=== PATIENT | female | born 1960 | race Caucasian/White ===

== ENCOUNTER → 2016-06-23 | Outpatient (REF) | payer MEDICARE, MEDICAID ==
[~2016-06-23] MED LIST: ABIL10TA; ABIL5TAB; BUPR100T12; BUPR15TA; CARI350T; DEPLIN; KLON0.5T; KLON1TAB; LIDO5DIS; OXYC10TA56; REST15CA; SING10TA31; VENTAER
[2016-06-23 12:41] LABS: ALBUMIN 3.7 GM/DL (3.2-5.2); ALBUMIN/GLOBULIN RATIO 1.09 (1.00-1.93); ALKALINE PHOSPHATASE 109 U/L (45-117); ALT/SGPT 49 U/L (12-78); ANION GAP 6 MEQ/L (8-16); AST/SGOT 22 U/L (15-37); BILIRUBIN,TOTAL 0.3 MG/DL (0.2-1.0); BLOOD UREA NITROGEN 42 MG/DL (7-18); CALCIUM LEVEL 9.5 MG/DL (8.5-10.1); CARBON DIOXIDE LEVEL 28 MEQ/L (21-32); CHLORIDE LEVEL 106 MEQ/L (98-107); CHOLESTEROL LEVEL 156 MG/DL (<200); CREATININE FOR GFR 1.02 MG/DL (0.55-1.02); GLOMERULAR FILTRATION RATE > 60.0 (>51); GLUCOSE, FASTING 103 MG/DL (70-105); SODIUM LEVEL 140 MEQ/L (136-145); TOTAL PROTEIN 7.1 GM/DL (6.4-8.2); TRIGLYCERIDES LEVEL 123 MG/DL (<150)
[2016-06-23 12:43] LABS: BASO % 0.6 % (0.0-1.0); EOS # 0.2 K/mm3 (0.0-0.50); EOS % 4.2 % (0.0-3.0); LYMPH # 1.6 K/mm3 (1.5-4.5); LYMPH % 31.1 % (24.0-44.0); MEAN CORPUSCULAR HEMOGLOBIN 29.4 pg (27.0-33.0); MEAN CORPUSCULAR HGB CONC 31.1 g/dl (32.0-36.5); MEAN CORPUSCULAR VOLUME 94.4 fl (80.0-96.0); MONO # 0.3 K/mm3 (0.0-0.8); MONO % 5.8 % (0.0-5.0); NEUTROPHILS # 2.9 K/mm3 (1.8-7.7); NEUTROPHILS % 55.8 % (36.0-66.0); RED CELL DISTRIBUTION WIDTH 13.3 % (11.5-14.5); WHITE BLOOD COUNT 5.1 K/mm3 (4.0-10.0)
[2016-06-23 12:44] LABS: POTASSIUM SERUM 5.2 MEQ/L (3.5-5.1)
== END | disposition home or self-care (01) ==
LOC: M LABDRAW1 11:26
PROVIDERS: ATTEND Physician Assistant Medical
DX: E11.9 Type 2 diabetes mellitus without complications (principal)

== ENCOUNTER 2016-08-01 20:33 | Emergency (ER) | payer MEDICARE, MEDICAID ==
[~2016-08-01] VITALS: Ht 160 cm; Wt 124.3 kg
[2016-08-01] MEDS ORDERED: METF500T PO (21:04)
[2016-08-01] MEDS ORDERED: HYDR-3348 PO (21:04)
[2016-08-01] MEDS ORDERED: DULO30CA PO (21:04)
[2016-08-01] MEDS ORDERED: SOMA350T PO (21:04)
[2016-08-01] MEDS ORDERED: ATOR1TAB19 PO (21:04)
[2016-08-01] MEDS ORDERED: HYDR25TAB PO (21:04)
[2016-08-01] MEDS ORDERED: LISI30TA4 PO (21:04)
[2016-08-01 21:54] LABS: CALCIUM LEVEL 8.8 MG/DL (8.5-10.1); CREATININE FOR GFR 1.41 MG/DL (0.55-1.02); GLOMERULAR FILTRATION RATE 41.4 (>51)
[2016-08-01 21:55] LABS: POTASSIUM SERUM 5.2 MEQ/L (3.5-5.1)
[2016-08-01] MEDS ORDERED: methylPREDNISolone INJ 125 MG/2 ML VIAL (J2930) As Ordered ONE (22:29)
[2016-08-01] MEDS ORDERED: methylPREDNISolone INJ 40 MG/1 ML VIAL (J2920) IV ONE (22:30)
[2016-08-01] MEDS ORDERED: IPRATROPIUM 0.5MG/ALBUTEROL 2.5MG INH SOL UD 3ML (DUONEB)(J7620) NEB ONE (22:30)
[2016-08-01] MEDS ORDERED: ISOVUE-370 76% 100ML VIAL (Q9967) As Ordered ONE (22:58)
[2016-08-01 23:03] LABS: BASO % 0.6 % (0.0-1.0); EOS # 0.1 K/mm3 (0.0-0.50); EOS % 2.7 % (0.0-3.0); LARGE UNSTAINED CELL # 0.3 K/mm3 (0.0-0.4); LARGE UNSTAINED CELL % 6.5 % (0.0-4.0); LYMPH # 2.5 K/mm3 (1.5-4.5); LYMPH % 45.5 % (24.0-44.0); MEAN CORPUSCULAR HEMOGLOBIN 30.5 pg (27.0-33.0); MEAN CORPUSCULAR HGB CONC 33.5 g/dl (32.0-36.5); MONO # 0.4 K/mm3 (0.0-0.8); MONO % 8.6 % (0.0-5.0); NEUTROPHILS # 1.7 K/mm3 (1.8-7.7); NEUTROPHILS % 36.1 % (36.0-66.0); PLATELET COUNT, AUTOMATED 237 k/mm3 (150-450); RED CELL DISTRIBUTION WIDTH 13.1 % (11.5-14.5); WHITE BLOOD COUNT 4.8 K/mm3 (4.0-10.0)
--- NOTE | 2016-08-01 23:30 | REPUSA ---
History: pain. Comparison: No prior CTA of the chest available Technique: A CT-pulmonary angiogram was performed. A dose of intravenous contrast was administered. A xial images were displayed, as were sagittal and coronal reconstructions. A 3-D model was also render ed. Exam DLP: Findings: No CT evidence of pulmonary embolism is identified. There is no evidence of thoracic aortic aneurysm or dissection. No air space consolidation is identified in the lungs. There is no evidence of pulmonary edema. No pa thologically enlarged hilar or mediastinal lymph nodes are identified. No significant pleural or sang cardial fluid collection is seen. There is no evidence of pneumothorax. Mild degenerative changes are noted in the spine. The included portion of the upper abdomen does not show significant abnormality. Impression: No evidence of pulmonary embolism is identified.
[2016-08-01 23:50] VITALS: BP 105/54
[2016-08-01] MEDS ORDERED: ALBU83IN INH (23:57)
[2016-08-02] MEDS ORDERED: BICILLIN L-A 2,400,000 UNIT/4 ML SYRINGE (J0561-24)PENICILLIN G BENZATINE IM ONE
--- NOTE | 2016-08-02 01:47 | REP ---
Clinical: Dyspnea/cough. Comparison: 09/10/2014 . Findings: The mediastinum and cardiac silhouette are stable and within normal limits for portable technique. The lung juares are clear without acute consolidation, effusion, or pneumothorax. Skeletal structures are intact. Impression: No obvious acute consolidation. Signed by Renzo Maddox MD 08/02/2016 01:39 A
--- NOTE | 2016-08-02 09:59 | ECGEPIP ---
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
== END 2016-08-02 00:28 | disposition home or self-care (01) ==
LOC: M ED 22:36
DX: R06.02 Shortness of breath (principal); J02.0 Streptococcal pharyngitis; J44.9 Chronic obstructive pulmonary disease, unspecified; I10 Essential (primary) hypertension; E11.9 Type 2 diabetes mellitus without complications; F32.9 Major depressive disorder, single episode, unspecified; M54.9 Dorsalgia, unspecified; M25.569 Pain in unspecified knee; Z87.891 Personal history of nicotine dependence; Z88.8 Allergy status to other drugs, medicaments and biological substances; Z88.1 Allergy status to other antibiotic agents; Z91.040 Latex allergy status; Z79.899 Other long term (current) drug therapy; Z79.84 Long term (current) use of oral hypoglycemic drugs
CPT/HCPCS: 71010; 71275; 80048; 83605; 83880; 85025; 87804; 87880; 93005; 93041; 94640; 94760; 96372; 96374; 99285; G0463; J0561; J2930; Q9967

== ENCOUNTER → 2017-02-15 | Outpatient (CLI) | payer MEDICARE, MEDICAID ==
[~2017-02-15] MED LIST changes: +ALBU83IN INH; +ATOR1TAB19 PO; +DULO30CA PO; +HYDR-3348 PO; +HYDR25TAB PO; +LISI30TA4 PO; +METF500T13 PO; +SOMA350T PO
[2017-02-15 16:54] LABS: ALBUMIN 3.5 GM/DL (3.2-5.2); BILIRUBIN,TOTAL 0.6 MG/DL (0.2-1.0); CALCIUM LEVEL 9.1 MG/DL (8.5-10.1); CREATININE FOR GFR 1.07 MG/DL (0.55-1.02); GLOMERULAR FILTRATION RATE 56.7 (>51); POTASSIUM SERUM 4.8 MEQ/L (3.5-5.1)
[2017-02-15 18:11] LABS: BASO # 0.1 10^3/uL (0.0-0.2); BASO % 0.8 % (0.0-1.0); EOS # 0.3 10^3/uL (0.0-0.50); EOS % 4.5 % (0.0-3.0); IMMATURE GRANULOCYTE % 0.3 % (0-0); LYMPH # 1.9 10^3/uL (1.5-4.5); LYMPH % 30.9 % (24.0-44.0); MEAN CORPUSCULAR HEMOGLOBIN 29.2 pg (27.0-33.0); MEAN CORPUSCULAR HGB CONC 30.9 g/dl (32.0-36.5); MEAN CORPUSCULAR VOLUME 94.6 fl (80.0-96.0); MONO # 0.5 10^3/uL (0.0-0.8); MONO % 7.4 % (0.0-5.0); NEUTROPHILS # 3.5 10^3/uL (1.8-7.7); NEUTROPHILS % 56.1 % (36.0-66.0); RED CELL DISTRIBUTION WIDTH 13.7 % (11.5-14.5); WHITE BLOOD COUNT 6.2 10^3/uL (4.0-10.0)
== END ==
LOC: M LRY 10:55
PROVIDERS: ATTEND Physician Assistant Medical
DX: E11.9 Type 2 diabetes mellitus without complications (principal)

== ENCOUNTER → 2017-05-20 | Outpatient (CLI) | payer MEDICARE, MEDICAID ==
[2017-05-20 19:14] LABS: BASO # 0.1 10^3/uL (0.0-0.2); BASO % 0.9 % (0.0-1.0); EOS # 0.4 10^3/uL (0.0-0.50); EOS % 6.6 % (0.0-3.0); IMMATURE GRANULOCYTE % 0.4 % (0-0); LYMPH # 1.5 10^3/uL (1.5-4.5); LYMPH % 28.1 % (24.0-44.0); MEAN CORPUSCULAR HEMOGLOBIN 29.3 pg (27.0-33.0); MEAN CORPUSCULAR HGB CONC 31.3 g/dl (32.0-36.5); MEAN CORPUSCULAR VOLUME 93.7 fl (80.0-96.0); MONO # 0.6 10^3/uL (0.0-0.8); MONO % 10.3 % (0.0-5.0); NEUTROPHILS # 2.9 10^3/uL (1.8-7.7); NEUTROPHILS % 53.7 % (36.0-66.0); PLATELET COUNT, AUTOMATED 279 10^3/uL (150-450); RED CELL DISTRIBUTION WIDTH 13.5 % (11.5-14.5); WHITE BLOOD COUNT 5.5 10^3/uL (4.0-10.0)
[2017-05-20 19:28] LABS: ESTIMATED AVERAGE GLUCOSE 137 MG/DL (60-110)
[2017-05-20 19:31] LABS: ALBUMIN 3.7 GM/DL (3.2-5.2); ALBUMIN/GLOBULIN RATIO 1.09 (1.00-1.93); ALKALINE PHOSPHATASE 103 U/L (45-117); ALT/SGPT 45 U/L (12-78); ANION GAP 9 MEQ/L (8-16); AST/SGOT 23 U/L (7-37); BILIRUBIN,TOTAL 0.5 MG/DL (0.2-1.0); BLOOD UREA NITROGEN 28 MG/DL (7-18); CALCIUM LEVEL 9.2 MG/DL (8.5-10.1); CARBON DIOXIDE LEVEL 29 MEQ/L (21-32); CHLORIDE LEVEL 103 MEQ/L (98-107); CHOLESTEROL LEVEL 229 MG/DL (<200); CREATININE FOR GFR 0.97 MG/DL (0.55-1.02); GLOMERULAR FILTRATION RATE > 60.0 (>51); GLUCOSE, FASTING 127 MG/DL (70-105); POTASSIUM SERUM 4.2 MEQ/L (3.5-5.1); SODIUM LEVEL 141 MEQ/L (136-145); T UPTAKE 32 % (30-39); THYROXINE (T4) 8.5 UG/DL (4.5-12.0); TOTAL PROTEIN 7.1 GM/DL (6.4-8.2); TRIGLYCERIDES LEVEL 300 MG/DL (<150)
[2017-05-20 20:08] LABS: ERYTHROCYTE SEDIMENTATION RATE 13 mm/hr (0-30)
[2017-05-23 11:10] LABS: ALBUMIN 4.04 GM/DL (3.29-5.55); ALBUMIN % 56.9 % (55.8-66.1); GAMMA GLOBULIN % 14.5 % (11.1-18.8)
[2017-05-25 00:06] LABS: Lyme Disease IgG/IgM Antibodie <0.91 ISR (0.00-0.90); Lyme Disease IgM Ab Quantitati <0.80 index (0.00-0.79)
== END ==
LOC: M WUC 08:06
DX: E11.9 Type 2 diabetes mellitus without complications (principal); M54.5 Low back pain
CPT/HCPCS: 82550

== ENCOUNTER → 2017-09-18 | Outpatient (CLI) | payer MEDICARE, MEDICAID ==
[2017-09-18 09:43] LABS: BASO % 0.6 % (0.0-1.0); EOS # 0.4 10^3/uL (0.0-0.50); EOS % 5.9 % (0.0-3.0); HEMATOCRIT 45.2 % (36.0-47.0); HEMOGLOBIN 14.3 g/dl (12.0-15.5); IMMATURE GRANULOCYTE % 0.6 % (0-3.0); LYMPH # 1.7 10^3/uL (1.5-4.5); LYMPH % 26.7 % (24.0-44.0); MEAN CORPUSCULAR HEMOGLOBIN 29.7 pg (27.0-33.0); MEAN CORPUSCULAR HGB CONC 31.6 g/dl (32.0-36.5); MONO # 0.6 10^3/uL (0.0-0.8); MONO % 9.4 % (0.0-5.0); NEUTROPHILS # 3.7 10^3/uL (1.8-7.7); NEUTROPHILS % 56.8 % (36.0-66.0); PLATELET COUNT, AUTOMATED 267 10^3/uL (150-450); RED BLOOD COUNT 4.81 10^6/uL (4.00-5.40); RED CELL DISTRIBUTION WIDTH 13.7 % (11.5-14.5); WHITE BLOOD COUNT 6.5 10^3/uL (4.0-10.0)
[2017-09-18 09:44] LABS: APPEARANCE, URINE HAZY (CLEAR); BACTERIA, URINE AUTO NEGATIVE (NEGATIVE); BILIRUBIN, URINE AUTO NEGATIVE (NEGATIVE); BLOOD, URINE BLOOD NEGATIVE (NEGATIVE); COLOR, URINE YELLOW (YELLOW); GLUCOSE, URINE (UA) AUTO NEGATIVE (NEGATIVE); KETONE, URINE AUTO NEGATIVE (NEGATIVE); LEUKOCYTE ESTERASE, URINE AUTO NEGATIVE (NEGATIVE); MUCUS, URINE SMALL (NEGATIVE); NITRITE, URINE AUTO NEGATIVE (NEGATIVE); PROTEIN, URINE AUTO NEGATIVE (NEGATIVE); RBC, URINE AUTO 1 /HPF (0-3); SPECIFIC GRAVITY URINE AUTO 1.023 (1.002-1.035); SQUAMOUS EPITHELIAL CELL UR AU 1 /HPF (0-6); UROBILINOGEN, URINE AUTO 0.2 mg/dL (0.0-2.0); WBC, URINE AUTO 2 /HPF (0-3)
[2017-09-18 09:59] LABS: ESTIMATED AVERAGE GLUCOSE 151 MG/DL (60-110); HEMOGLOBIN A1c 6.9 %
[2017-09-18 10:28] LABS: ALBUMIN 3.7 GM/DL (3.2-5.2); ALBUMIN/GLOBULIN RATIO 0.95 (1.00-1.93); ALKALINE PHOSPHATASE 120 U/L (45-117); ALT/SGPT 45 U/L (12-78); ANION GAP 5 MEQ/L (8-16); AST/SGOT 19 U/L (7-37); BILIRUBIN,TOTAL 0.4 MG/DL (0.2-1.0); BLOOD UREA NITROGEN 31 MG/DL (7-18); CARBON DIOXIDE LEVEL 29 MEQ/L (21-32); CHLORIDE LEVEL 107 MEQ/L (98-107); CHOLESTEROL LEVEL 217 MG/DL (<200); CHOLESTEROL RISK RATIO 3.238 (<5); CREATININE FOR GFR 1.02 MG/DL (0.55-1.30); GLOMERULAR FILTRATION RATE 59.7 (>51); GLUCOSE, FASTING 132 MG/DL (70-100); HDL CHOLESTEROL 67 MG/DL (>40); LDL CHOLESTEROL 112.8 MG/DL (<100); MALB URINE SIEMENS 10.2 MG/L; NON-HDL-C 150 MG/DL; POTASSIUM SERUM 4.4 MEQ/L (3.5-5.1); SODIUM LEVEL 141 MEQ/L (136-145); TOTAL PROTEIN 7.6 GM/DL (6.4-8.2); TRIGLYCERIDES LEVEL 186 MG/DL (<150)
[2017-09-18 11:02] LABS: TOTAL 25(OH) VITAMIN D 12.9 NG/ML (30.0-100.0)
== END ==
LOC: M LAB 08:50
DX: F41.9 Anxiety disorder, unspecified (principal); M25.569 Pain in unspecified knee; I10 Essential (primary) hypertension; E11.9 Type 2 diabetes mellitus without complications; E78.5 Hyperlipidemia, unspecified; R31.21 Asymptomatic microscopic hematuria
CPT/HCPCS: 84443

== ENCOUNTER → 2017-11-05 | Outpatient (CLI) | payer MEDICARE, MEDICAID | LOC: M SLEEP 20:00 | DX: G47.33 Obstructive sleep apnea (adult) (pediatric) (principal) | CPT/HCPCS: 95811 ==

== ENCOUNTER → 2017-11-16 | Outpatient (REF) | payer MEDICARE, MEDICAID ==
[2017-11-16 18:37] LABS: APPEARANCE, URINE CLEAR (CLEAR); BACTERIA, URINE AUTO 1+ (NEGATIVE); BILIRUBIN, URINE AUTO NEGATIVE (NEGATIVE); BLOOD, URINE BLOOD NEGATIVE (NEGATIVE); COLOR, URINE YELLOW (YELLOW); GLUCOSE, URINE (UA) AUTO NEGATIVE (NEGATIVE); KETONE, URINE AUTO NEGATIVE (NEGATIVE); LEUKOCYTE ESTERASE, URINE AUTO NEGATIVE (NEGATIVE); MUCUS, URINE SMALL (NEGATIVE); NITRITE, URINE AUTO NEGATIVE (NEGATIVE); PROTEIN, URINE AUTO NEGATIVE (NEGATIVE); RBC, URINE AUTO 1 /HPF (0-3); SPECIFIC GRAVITY URINE AUTO 1.011 (1.002-1.035); SQUAMOUS EPITHELIAL CELL UR AU 3 /HPF (0-6); UROBILINOGEN, URINE AUTO 0.2 mg/dL (0.0-2.0); WBC, URINE AUTO 1 /HPF (0-3)
== END ==
LOC: M LAB REF 16:37
DX: R39.15 Urgency of urination (principal)
CPT/HCPCS: 81001

== ENCOUNTER → 2018-02-19 | Outpatient (CLI) | payer MEDICARE, MEDICAID | LOC: M WUC 17:12 | DX: R06.00 Dyspnea, unspecified (principal) | CPT/HCPCS: 71046 ==

== ENCOUNTER → 2018-05-09 | Outpatient (CLI) | payer MEDICARE, MEDICAID ==
[~2018-05-09] MED LIST changes: +CELE40TA PO; +DYAZ37.5 PO; +E-Z-GAS II EFFERVESCENT PACKET (SODIUM BICARB./CITRIC ACID/SIMETHICONE) As Ordered ONE; +E-Z-HD 98% w/w 340GM SUSP BTL As Ordered ONE; +E-Z-PAQUE 96% w/w SUSP 176GM BTL As Ordered ONE; +LISI-672 PO; +LISI10TA4 PO; -LISI30TA4 PO; +PROAAER10 INH; +PYRI1TAB5 PO; +SING10TA32 PO; +ZYRTTAB8 PO
--- NOTE | 2018-05-09 20:32 | REP ---
Esophagram The procedure was performed under the direct supervision of Dr. Allen. The images were reviewed with Dr. Allen. 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 There is no change compared to a previous chest x-ray performed on 02/19/2018. Liquid barium and gas producing granules were given in the erect position as well as liquid barium in the prone oblique positions in order to perform a double contrast esophagram examination. The oral and pharyngeal stages of deglutition are unremarkable. Esophageal transport is prompt and efficient and there is no esophagitis, stricture, mucosal ring or hiatal hernia. Gastroesophageal reflux is not demonstrated on this examination. Impression: unremarkable double contrast esophagram examination. 0.7 minutes of fluoro time was utilized for this procedure. Reviewed by PARKER Hook 05/09/2018 04:29 P Electronically Signed by Winston Allen MD 05/09/2018 08:23 P
== END ==
LOC: M RAD 09:55
PROVIDERS: ATTEND Physician Assistant Medical
DX: R13.10 Dysphagia, unspecified (principal)

== ENCOUNTER 2018-05-28 10:06 | Day surgery (SDC) | payer MEDICARE, MEDICAID ==
[~2018-05-28] VITALS: Ht 160 cm; Wt 137.9 kg
[~2018-05-28 10:06] MED LIST changes: -E-Z-GAS II EFFERVESCENT PACKET (SODIUM BICARB./CITRIC ACID/SIMETHICONE) As Ordered ONE; -E-Z-HD 98% w/w 340GM SUSP BTL As Ordered ONE; -E-Z-PAQUE 96% w/w SUSP 176GM BTL As Ordered ONE; +LIDOCAINE 2% INJ 100 MG/5 ML SDV (FOR ANES.) As Ordered ONE; +PROPOFOL 200 MG/20 ML VIAL As Ordered ONE; -ZYRTTAB8 PO
[2018-05-28] MEDS ORDERED: NS 1,000 ML IV ONE (10:30)
[2018-05-28] MEDS ORDERED: ZYRTTAB8 PO (10:50)
[2018-05-28] MEDS ORDERED: PROPOFOL 200 MG/20 ML VIAL As Ordered ONE (11:17)
--- NOTE | 2018-05-28 11:19 | ROOR ---
Patient Name: Ning Hermosillo Procedure Date: 05/28/2018 11:04 AM Date of : 1960 Age: 57 Room: [facility] Gender: Female Note Status: Finalized Procedure: Colonoscopy Indications: High risk colon cancer surveillance: Personal history of colonic polyps, Last colonoscopy: June 2014 Providers: Collin PADILLA MD Referring MD: NEGRO FRASER MD Requesting Provider: Medicines: Monitored Anesthesia Care Complications: No immediate complications. Procedure: Pre-Anesthesia Assessment: - The heart rate, respiratory rate, oxygen saturations, blood pressure, adequacy of pulmonary ventilation, and response to care were monitored throughout the procedure. The Colonoscope was introduced through the anus and advanced to the terminal ileum, with identification of the appendiceal orifice and IC valve. The colonoscopy was performed without difficulty. The patient tolerated the procedure well. The quality of the bowel preparation was good. Findings: The perianal and digital rectal examinations were normal. A 4 mm polyp was found in the sigmoid colon. The polyp was sessile. The polyp was removed with a cold snare. Resection and retrieval were complete. Mild sigmoid diverticulosis and small internal hemorrhoids. Retroflexion in the right colon was performed. Impression: - One 4 mm polyp in the sigmoid colon, removed with a cold snare. Resected and retrieved. - Mild sigmoid diverticulosis and small internal hemorrhoids. - The exam was otherwise normal to the cecum. Recommendation: - Repeat colonoscopy in 5 years for surveillance and for surveillance based on personal history of previous adenomatous polyps. Collin Padilla MD Collin PADILLA MD 05/28/2018 11:19:19 AM This report has been signed electronically. Number of Addenda: 0 Note Initiated On: 05/28/2018 11:04 AM Estimated Blood Loss: Estimated blood loss: none.
[2018-05-28 11:50] VITALS: BP 147/100
== END 2018-05-28 11:51 | disposition home or self-care (01) ==
LOC: M OPP 10:06
PROVIDERS: ATTEND Internal Medicine Gastroenterology
DX: D12.5 Benign neoplasm of sigmoid colon (principal); K57.30 Diverticulosis of large intestine without perforation or abscess without bleeding; K64.8 Other hemorrhoids; Z86.010 Personal history of colon polyps

== ENCOUNTER 2018-06-19 10:47 | Emergency (ER) | payer MEDICARE, MEDICAID ==
[~2018-06-19] VITALS: Ht 160 cm; Wt 140.0 kg
[~2018-06-19 10:47] MED LIST changes: -LIDOCAINE 2% INJ 100 MG/5 ML SDV (FOR ANES.) As Ordered ONE; -PROPOFOL 200 MG/20 ML VIAL As Ordered ONE; +ZYRTTAB8 PO
[2018-06-19] MEDS ORDERED: CETI10CH PO (11:11)
[2018-06-19] MEDS ORDERED: MAG400TA PO (11:11)
[2018-06-19] MEDS ORDERED: TRAM50TA2 PO (11:11)
[2018-06-19] MEDS ORDERED: SYMB16INH INH (11:11)
[2018-06-19 11:24] LABS: BASO % 0.3 % (0.0-1.0); EOS # 0.3 10^3/uL (0.0-0.50); EOS % 5.2 % (0.0-3.0); HEMATOCRIT 47.8 % (36.0-47.0); LYMPH # 1.6 10^3/uL (1.5-4.5); LYMPH % 25.8 % (24.0-44.0); MEAN CORPUSCULAR HEMOGLOBIN 30.2 pg (27.0-33.0); MEAN CORPUSCULAR HGB CONC 31.4 g/dl (32.0-36.5); MEAN CORPUSCULAR VOLUME 96.4 fl (80.0-96.0); MONO # 0.6 10^3/uL (0.0-0.8); MONO % 9.6 % (0.0-5.0); NEUTROPHILS # 3.7 10^3/uL (1.8-7.7); NEUTROPHILS % 58.6 % (36.0-66.0); PLATELET COUNT, AUTOMATED 236 10^3/uL (150-450); RED BLOOD COUNT 4.96 10^6/uL (4.00-5.40); WHITE BLOOD COUNT 6.4 10^3/uL (4.0-10.0)
[2018-06-19 11:34] LABS: ABG BASE EXCESS -1.8 (-2.0-2.0); ABG HCO3 24.5 MEQ/L (22.0-26.0); ABG O2 SATURATION 97.3 % (95.0-99.0); ABG PARTIAL PRESSURE CO2 47.1 mmHg (35.0-45.0); ABG PARTIAL PRESSURE O2 97.8 mmHg (75.0-100.0); ABG TOTAL CO2 25.9 MEQ/L (22.0-29.0); ABG pH (ARTERIAL) 7.334 UNITS (7.350-7.450)
[2018-06-19] MEDS ORDERED: methylPREDNISolone INJ 125 MG/2 ML VIAL (J2930) IV ONE (11:45)
[2018-06-19] MEDS ORDERED: IPRATROPIUM 0.5MG/ALBUTEROL 2.5MG INH SOL UD 3ML (DUONEB)(J7620) NEB ONE (11:45)
[2018-06-19 12:01] LABS: ALBUMIN 3.2 GM/DL (3.2-5.2); ALT/SGPT 55 U/L (12-78); BILIRUBIN,DIRECT 0.1 MG/DL (0.0-0.2); BILIRUBIN,TOTAL 0.4 MG/DL (0.2-1.0); BLOOD UREA NITROGEN 25 MG/DL (7-18); CALCIUM LEVEL 8.9 MG/DL (8.5-10.1); CARBON DIOXIDE LEVEL 29 MEQ/L (21-32); CHLORIDE LEVEL 102 MEQ/L (98-107); CPK CREATINE PHOSPHOKINASE 80 U/L (26-192); CREATININE FOR GFR 0.98 MG/DL (0.55-1.30); GLOMERULAR FILTRATION RATE > 60.0 (>51); GLUCOSE, FASTING 120 MG/DL (70-100); MB/CK RELATIVE INDEX 1.62 (< OR =4); NT-PRO BNP 37 PG/ML (<125); POTASSIUM SERUM 4.2 MEQ/L (3.5-5.1); SODIUM LEVEL 138 MEQ/L (136-145); TROPONIN I 0.08 NG/ML (< 0.10)
[2018-06-19] MEDS ORDERED: ISOVUE-370 76% 100ML VIAL (Q9967) As Ordered ONE (12:39)
--- NOTE | 2018-06-19 13:39 | REP ---
Clinical: Hypoxia. Technique: Axial contrast enhanced images from the thoracic inlet to the upper abdomen with coronal and sagittal re-formations using PE protocol. 100 ml Isovue 370 intravenous contrast material administered without complication. Findings: Satisfactory enhancement of the pulmonary vasculature is achieved and no filling defects are identified to suggest pulmonary embolus. The lung juares demonstrate mild bilateral lower lobe atelectasis and small focus of consolidation at the lingula. No effusion. No pneumothorax. Tracheobronchial tree is patent. No significant adenopathy. Mediastinum demonstrates normal thoracic aorta and heart/pericardium. Musculoskeletal structures without focal osseous abnormality. Limited upper abdomen demonstrates normal bilateral adrenal glands and findings to suggest hepatosteatosis. Impression: 1. No pulmonary embolus. 2. Mild bibasilar and lingular atelectasis. 3. Hepatosteatosis suggested. Electronically Signed by Renzo Maddox MD 06/19/2018 01:31 P
[2018-06-19 13:53] VITALS: O2SAT 86
[2018-06-19] MEDS ORDERED: PRED20TA PO (14:01)
[2018-06-19 14:08] VITALS: BP 150/75
--- NOTE | 2018-06-19 21:20 | ECGEPIP ---
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
== END 2018-06-19 14:22 | disposition left against medical advice (07) ==
LOC: M ED 10:47 → EDBD 10:47 → M ED 14:22
DX: J44.9 Chronic obstructive pulmonary disease, unspecified (principal); N18.9 Chronic kidney disease, unspecified; I12.9 Hypertensive chronic kidney disease with stage 1 through stage 4 chronic kidney disease, or unspecified chronic kidney disease; E11.22 Type 2 diabetes mellitus with diabetic chronic kidney disease; M19.90 Unspecified osteoarthritis, unspecified site
CPT/HCPCS: 36600; 71275; 80048; 80076; 82550; 82553; 82803; 83880; 84443; 84484; 85025; 93005; 93041; 94640; 94760; 96374; 99285; J2930; Q9967

== ENCOUNTER → 2018-08-03 | Outpatient (REF) | payer MEDICARE, MEDICAID ==
[~2018-08-03] MED LIST changes: +CETI10CH PO; +MAG400TA PO; +PRED20TA PO; +SYMB16INH INH; +TRAM50TA2 PO
[2018-08-03 13:41] LABS: APPEARANCE, URINE CLEAR (CLEAR); BACTERIA, URINE AUTO 1+ (NEGATIVE); BILIRUBIN, URINE AUTO NEGATIVE (NEGATIVE); BLOOD, URINE BLOOD NEGATIVE (NEGATIVE); COLOR, URINE YELLOW (YELLOW); GLUCOSE, URINE (UA) AUTO NEGATIVE (NEGATIVE); KETONE, URINE AUTO NEGATIVE (NEGATIVE); LEUKOCYTE ESTERASE, URINE AUTO NEGATIVE (NEGATIVE); NITRITE, URINE AUTO NEGATIVE (NEGATIVE); PROTEIN, URINE AUTO NEGATIVE (NEGATIVE); RBC, URINE AUTO 0 /HPF (0-3); SPECIFIC GRAVITY URINE AUTO 1.012 (1.002-1.035); SQUAMOUS EPITHELIAL CELL UR AU 0 /HPF (0-6); UROBILINOGEN, URINE AUTO 0.2 mg/dL (0.0-2.0); WBC, URINE AUTO 0 /HPF (0-3)
[2018-08-03 13:56] LABS: HEMOGLOBIN A1c 7.4 %
[2018-08-03 14:03] LABS: ALBUMIN 3.5 GM/DL (3.2-5.2); BILIRUBIN,TOTAL 0.8 MG/DL (0.2-1.0); CALCIUM LEVEL 8.9 MG/DL (8.5-10.1); CHOLESTEROL RISK RATIO 2.73 (<5); CREATININE FOR GFR 1.06 MG/DL (0.55-1.30); GLOMERULAR FILTRATION RATE 57.1 (>51); POTASSIUM SERUM 4.2 MEQ/L (3.5-5.1); THYROID STIMULATING HORMONE 2.39 uIU/ML (0.358-3.740); TOTAL PROTEIN 6.9 GM/DL (6.4-8.2)
== END ==
LOC: M LAB REF 11:52
PROVIDERS: ATTEND Family Medicine Addiction Medicine
DX: E11.9 Type 2 diabetes mellitus without complications (principal)

== ENCOUNTER → 2018-08-03 | Outpatient (CLI) | payer MEDICARE, MEDICAID ==
[2018-08-03 17:15] LABS: BASO % 0.6 % (0.0-1.0); EOS # 0.2 10^3/uL (0.0-0.50); EOS % 2.4 % (0.0-3.0); HEMATOCRIT 46.3 % (36.0-47.0); HEMOGLOBIN 14.5 g/dl (12.0-15.5); LYMPH # 1.8 10^3/uL (1.5-4.5); LYMPH % 25.3 % (24.0-44.0); MEAN CORPUSCULAR HEMOGLOBIN 29.8 pg (27.0-33.0); MEAN CORPUSCULAR HGB CONC 31.3 g/dl (32.0-36.5); MEAN CORPUSCULAR VOLUME 95.3 fl (80.0-96.0); MONO # 0.6 10^3/uL (0.0-0.8); MONO % 8.1 % (0.0-5.0); NEUTROPHILS # 4.6 10^3/uL (1.8-7.7); NEUTROPHILS % 63.3 % (36.0-66.0); PLATELET COUNT, AUTOMATED 229 10^3/uL (150-450); RED BLOOD COUNT 4.86 10^6/uL (4.00-5.40); WHITE BLOOD COUNT 7.2 10^3/uL (4.0-10.0)
== END ==
LOC: M WUC 14:28
PROVIDERS: ATTEND Physician Assistant
DX: J45.998 Other asthma (principal); E11.9 Type 2 diabetes mellitus without complications

== ENCOUNTER → 2018-08-15 | Outpatient (REF) | payer MEDICARE, MEDICAID | LOC: M LAB REF 19:27 | PROVIDERS: ATTEND Family Medicine Addiction Medicine | DX: M25.562 Pain in left knee (principal) ==

== ENCOUNTER → 2018-08-21 | Outpatient (CLI) | payer MEDICARE, MEDICAID ==
[~2018-08-21] MED LIST changes: -DULO30CA PO; +DULO30CA9 PO
--- NOTE | 2018-08-21 10:47 | REP ---
MRI left knee without contrast: History: Left knee pain. Comparison left knee MRI study is from August 28, 2017. The prior study showed medial and lateral meniscal tears, chondromalacia, and suggestion of a bone infarct in the proximal tibia. Technique: Axial, coronal and sagittal imaging planes utilized. T1, proton density and T2-weighted scans were obtained in the usual fashion with and without fat saturation MRI findings: Cortical and medullary bone signal intensity are normal. There is a moderate sized Villarreal's cyst in the posteromedial popliteal soft tissues. This measures 5.2 cm in greatest diameter. There is a moderate joint effusion. Some prepatellar subcutaneous edema is seen. The joint effusion is a little more prominent than on the 2018 study. There is moderate degree of osteoarthritis affecting the medial and lateral compartments. There is severe chondromalacia in the medial compartment and moderate chondromalacia changes are seen laterally and in the patellofemoral compartment. These findings are quite similar to the study done a year ago. There are cellular marrow changes in the distal femur and proximal tibia. Some T2 hyperintensity is seen in the proximal tibia beneath the tibial spines. This is unchanged from the comparison study. There is medial bowing of the medial collateral ligament. The MCL appears intact. The lateral collateral ligament complex appears intact. Patellar and quadriceps tendons are unremarkable. The anterior posterior cruciate ligaments appear intact. There is some increased signal intensity diffusely in the posterior cruciate ligament. There is medial extrusion of the mid body of the medial meniscus associated with the osteoarthritis. This is more pronounced than on the prior study. There is evidence of degenerative tearing of the post horn of the medial and the anterior horn of the medial meniscus. Some increased signal intensity is seen in the anterior horn of the lateral meniscus. This is unchanged. There is no visible loose body. Impression: Moderate three compartment osteoarthritis most pronounced affecting the medial compartment. Severe chondromalacia changes. Degenerative tear pattern in the medial and lateral menisci unchanged. Villarreal's cyst and joint effusion. Electronically Signed by Winston Allen MD 08/21/2018 01:17 P
--- NOTE | 2018-08-21 10:48 | REP ---
MRI pelvis without contrast: History: Fracture of the lumbar spine and pelvis. Comparison pelvic MRI study is from June 25, 2018. This showed an avulsion fracture of the left pubis at the insertion of the adductor longus tendon. Findings were also seen suggestive of avascular necrosis of the femoral heads. Technique: Axial, coronal and sagittal imaging planes were utilized. T1 and T2-weighted scans were obtained with and without fat saturation. MRI findings: Again noted is an abnormal signal intensity pattern in the subcortical marrow of the femoral heads bilaterally consistent with mild avascular necrosis. No collapse or flattening. There is a small quantity of joint fluid present bilaterally. Abnormal signal intensity is again seen at the adductor insertion on the left pubic bone with evidence of some fluid accumulation here. This is the site where prior study showed a small evulsion injury. No ongoing bony erosive change is seen. No muscle or tendon retraction is appreciated. Cortical and medullary bone signal intensity are otherwise normal. There is sigmoid colon diverticulosis noted. No other significant finding. Impression: Persistent edematous and fluid signal intensity noted at the adductor attachment on the left side of the pubic symphysis consistent with subacute injury. No other acute abnormality. 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 Electronically Signed by Winston Allen MD 08/21/2018 01:17 P
== END ==
LOC: M RAD 08:20
PROVIDERS: ATTEND Family Medicine Addiction Medicine
DX: S32.9XXA Fracture of unspecified parts of lumbosacral spine and pelvis, initial encounter for closed fracture (principal); M25.562 Pain in left knee; X58.XXXA Exposure to other specified factors, initial encounter; Y93.89 Activity, other specified; Y92.9 Unspecified place or not applicable

== ENCOUNTER → 2018-09-27 | Outpatient (CLI) | payer MEDICARE, MEDICAID ==
--- NOTE | 2018-09-27 16:35 | REP ---
Hand series: Four views. History: Pain. Findings: Four views of the left hand demonstrate overall normal mineralization. There is an old ununited ulnar styloid fracture. There is mild osteoarthritis the first carpometacarpal articulation. Osteoarthritic spurring is seen at the IP joint of the thumb and to a lesser extent, the PIP joints of the index and long finger and the DIP joint of the index and ring finger. No erosive changes seen. Impression: Osteoarthritic changes. Electronically Signed by Winston Allen MD 09/27/2018 04:53 P
== END ==
LOC: M WUC 08:55
PROVIDERS: ATTEND Physician Assistant
DX: M19.042 Primary osteoarthritis, left hand (principal)

== ENCOUNTER → 2018-11-21 | Outpatient (CLI) | payer MEDICARE, MEDICAID ==
--- NOTE | 2018-11-21 14:29 | REPMRS ---
Patient History The patient states she has not had a clinical breast exam in over a year. Family history of breast cancer at age 50 or over in maternal aunt, breast cancer in maternal aunt. 3D TOMOSYNTHESIS WAS PERFORMED. The Francisco Cantor lifetime risk for breast cancer is 10.3%. Digital Mammo Screening Bilat: November 21, 2018 - Exam #: [id number] Bilateral CC and MLO view(s) were taken. Technologist: Mckenna Donaldson Technologist Prior study comparison: October 10, 2017, bilateral digital mammo screening bilat performed at [facility]. January 04, 2016, bilateral digital mammo screening bilat performed at [facility]. FINDINGS: There are scattered fibroglandular densities. There has been no change in the appearance of the mammogram from the prior studies. There is a mild amount of residual fibroglandular tissue which is fairly symmetric. There is no interval development of dominant mass, architectural distortion, or clustered microcalcification suggestive of malignancy. Assessment: BI-RADS/ACR category 1 mammogram. Negative Mammogram. Recommendation Routine screening mammogram in 1 year (for women over age 40). This mammogram was interpreted with the aid of an FDA-approved computer-aided dectection system. Electronically Signed By: Sandeep Barry MD 11/21/18 [id number]
== END ==
LOC: M RAD 12:54
PROVIDERS: ATTEND Family Medicine Addiction Medicine
DX: Z12.31 Encounter for screening mammogram for malignant neoplasm of breast (principal)

== ENCOUNTER → 2019-01-07 | Outpatient (REF) | payer MEDICARE, MEDICAID ==
[2019-01-07 13:43] LABS: ALBUMIN 3.2 GM/DL (3.2-5.2); ALT/SGPT 57 U/L (12-78); BILIRUBIN,TOTAL 0.3 MG/DL (0.2-1.0); BLOOD UREA NITROGEN 29 MG/DL (7-18); CALCIUM LEVEL 9.2 MG/DL (8.5-10.1); CARBON DIOXIDE LEVEL 32 MEQ/L (21-32); CHLORIDE LEVEL 103 MEQ/L (98-107); CHOLESTEROL LEVEL 224 MG/DL (<200); CHOLESTEROL RISK RATIO 4.072 (<5); CREATININE FOR GFR 0.94 MG/DL (0.55-1.30); GLOMERULAR FILTRATION RATE > 60.0 (>51); GLUCOSE, FASTING 178 MG/DL (70-100); HDL CHOLESTEROL 55 MG/DL (>40); LDL CHOLESTEROL 122 MG/DL (<100); NON-HDL-C 169 MG/DL; POTASSIUM SERUM 4.2 MEQ/L (3.5-5.1); SODIUM LEVEL 142 MEQ/L (136-145); TOTAL PROTEIN 6.7 GM/DL (6.4-8.2); TRIGLYCERIDES LEVEL 233 MG/DL (<150)
[2019-01-07 13:58] LABS: TOTAL 25(OH) VITAMIN D 21.5 NG/ML (30.0-100.0)
== END ==
LOC: M LAB REF 12:44
PROVIDERS: ATTEND Family Medicine Addiction Medicine
DX: I10 Essential (primary) hypertension (principal); Z79.52 Long term (current) use of systemic steroids; Z79.899 Other long term (current) drug therapy

== ENCOUNTER 2019-02-15 11:40 | Inpatient (IN) | payer MEDICARE, MEDICAID ==
[~2019-02-15] VITALS: Ht 157.5 cm; Wt 140.8 kg
[2019-02-15] MEDS ORDERED: methylPREDNISolone INJ 125 MG/2 ML VIAL (J2930) IV ONE (12:15)
[2019-02-15] MEDS ORDERED: ALBUTEROL SULFATE 2.5 MG/0.5 ML INH NEB SOLN INH ONE (12:15)
[2019-02-15] MEDS ORDERED: IPRATROPIUM 0.5MG/ALBUTEROL 2.5MG INH SOL UD 3ML (DUONEB)(J7620) NEB ONE ×2 (12:15→14:30)
[2019-02-15 12:41] LABS: BASO % 0.3 % (0.0-1.0); EOS % 0.3 % (0.0-3.0); HEMATOCRIT 44.4 % (36.0-47.0); HEMOGLOBIN 14.1 g/dl (12.0-15.5); LYMPH # 0.8 10^3/uL (1.5-5.0); LYMPH % 7.9 % (24.0-44.0); MEAN CORPUSCULAR HEMOGLOBIN 30.5 pg (27.0-33.0); MEAN CORPUSCULAR HGB CONC 31.8 g/dl (32.0-36.5); MEAN CORPUSCULAR VOLUME 96.1 fl (80.0-96.0); MONO # 0.8 10^3/uL (0.0-0.8); MONO % 7.6 % (0.0-5.0); NEUTROPHILS # 8.5 10^3/uL (1.5-8.5); PLATELET COUNT, AUTOMATED 242 10^3/uL (150-450); RED BLOOD COUNT 4.62 10^6/uL (4.00-5.40); WHITE BLOOD COUNT 10.2 10^3/uL (4.0-10.0)
--- NOTE | 2019-02-15 12:43 | REP ---
Portable chest, 12:18 a.m., single AP view with the patient sitting: An comparison to 02/19/2018 and 08/01/2016. The the patient is rotated. There is increased density inferiorly on the right. This is nonspecific and could be from superimposed right breast in combination of patient rotation or could represent an infiltrate. Remainder the lung juares are clear. Cardiac size normal. Dixie, mediastinum, skeletal structures are unremarkable. Impression: Nonspecific increased density inferiorly in the right lung as described. Electronically Signed by Sandeep Benson MD 02/15/2019 12:35 P
[2019-02-15] MEDS ORDERED: PIPERACILLIN/TAZOBACTAM SOD 4.5 GM in D5W MINI-BAG PLUS 50 ML IV ONE (13:00)
[2019-02-15 13:18] LABS: INFLUENZA A AMPLIFICATION NEGATIVE (NEGATIVE); INFLUENZA B AMPLIFICATION NEGATIVE (NEGATIVE)
[2019-02-15 13:22] LABS: ALBUMIN 2.8 GM/DL (3.2-5.2); ALT/SGPT 104 U/L (12-78); BILIRUBIN,DIRECT < 0.1 MG/DL (0.0-0.2); BILIRUBIN,TOTAL 0.8 MG/DL (0.2-1.0); BLOOD UREA NITROGEN 15 MG/DL (7-18); CALCIUM LEVEL 8.5 MG/DL (8.5-10.1); CARBON DIOXIDE LEVEL 31 MEQ/L (21-32); CHLORIDE LEVEL 101 MEQ/L (98-107); CK-MB VALUE MASS < 1.0 NG/ML (<3.6); CPK CREATINE PHOSPHOKINASE 111 U/L (26-192); CREATININE FOR GFR 0.92 MG/DL (0.55-1.30); GLOMERULAR FILTRATION RATE > 60.0 (>51); GLUCOSE, FASTING 152 MG/DL (70-100); NT-PRO BNP 915 PG/ML (<125); POTASSIUM SERUM 5.2 MEQ/L (3.5-5.1); SODIUM LEVEL 139 MEQ/L (136-145); TOTAL PROTEIN 6.6 GM/DL (6.4-8.2)
[2019-02-15] MEDS ORDERED: CETI10TA4 PO (13:24)
[2019-02-15] MEDS ORDERED: DULO1CAP6 PO (13:24)
[2019-02-15] MEDS ORDERED: LISI-542 PO (13:24)
[2019-02-15] MEDS ORDERED: SERT-138 PO (13:28)
[2019-02-15] MEDS ORDERED: HYDR-3363 PO (13:28)
[2019-02-15] MEDS ORDERED: HYDR-3713 PO (13:28)
[2019-02-15] MEDS ORDERED: ARIP1TAB6 PO (13:28)
[2019-02-15] MEDS ORDERED: BACL1TAB8 PO (13:28)
[2019-02-15] MEDS ORDERED: ISOVUE-370 76% 100ML VIAL (Q9967) As Ordered ONE (13:52)
--- NOTE | 2019-02-15 15:22 | REP ---
CT of the chest with IV contrast, CT pulmonary artery angiography: Comparison is 06/19/2018. There are no emboli in the pulmonary trunk or central pulmonary arteries. There are no emboli in the pulmonary lobe or segment branches. There are multiple ground-glass densities in all lobes of each lung today as an interval change, this is nonspecific, and can be infectious, inflammatory or neoplastic. Follow-up is recommended. There are no pleural effusions. There is no mediastinal, hilar or axillary lymphadenopathy. The thoracic aorta is unremarkable. Cardiac size is normal. There is no pericardial effusion. The visualized upper abdominal contents are unremarkable. Impression: There are no pulmonary emboli. There are multiple ground-glass densities in all lobes of each lung as an interval change, nonspecific, infectious, inflammatory or neoplastic. There are no pleural effusions. No adenopathy. Follow-up is recommended. Electronically Signed by Sandeep Benson MD 02/15/2019 03:13 P
[2019-02-15] MEDS ORDERED: IPRATROPIUM 0.5MG/ALBUTEROL 2.5MG INH SOL UD 3ML (DUONEB)(J7620) NEB PRN (15:30)
--- NOTE | 2019-02-15 17:03 | HPE ---
DATE OF ADMISSION: 02/15/2019 PRIMARY CARE PROVIDER: [facility] ATTENDING PHYSICIAN: Hospitalist group CHIEF COMPLAINT: Exacerbation of chronic obstructive pulmonary disease (COPD) secondary to bronchitis. HISTORY: Ning Hermosillo is a 58-year-old of [facility]. She has been having increasing trouble breathing for 4 or 5 days, started with a upper respiratory infection (URI) with chest congestion, cough, and wheezing. She presented to the emergency room, oxygen saturation was 70% on room air. She is being admitted for exacerbation of COPD. CT angiogram done was negative for pulmonary embolism. I am not able to open the films on the hospitalists' office work station, but per report it shows increased interstitial markings, but no pulmonary embolism. PAST MEDICAL HISTORY: Sleep apnea, stage IV chronic kidney disease, degenerative arthritis, fibromyalgia for which she saw rheumatology at [facility] 12/27/2018, chronic depression and anxiety, chronic back pain, hypertension, hyperlipidemia, COPD without any spirometry to quantitate severity that I have access to. ALLERGIES: SKELAXIN caused a rash, TYLENOL rash, LATEX caused a rash, LEVAQUIN caused a rash. SURGICAL HISTORY: section, tubal ligation, hysterectomy, tonsillectomy, hernia repair. FAMILY HISTORY: Mother had breast cancer, rheumatoid arthritis, psoriasis. SOCIAL HISTORY: She still smokes on occasion, "only when I drink wine," which is not frequent. Moderate alcohol intake. REVIEW OF SYSTEMS: No hemoptysis, unexplained weight loss, polyuria or polydipsia, chest pain or palpitations. MEDICATIONS: - Vicodin tablet every 4 hours as needed - albuterol inhaler two puffs every 4 hours as needed - aripiprazole 2.5 mg nightly - atorvastatin 10 mg daily - baclofen 10 mg daily - Symbicort 160-4.5 two puffs daily - cetirizine 10 mg daily - duloxetine 60 mg daily - hydroxyzine 25 mg twice a day - lisinopril 5 mg daily - metformin 500 mg daily - Singulair 10 mg daily - sertraline 100 mg daily - Dyazide 37.5-25 one daily PHYSICAL EXAMINATION: Vital signs: Per flow sheet. General appearance: He is alert, conversant, in no distress. No facial droop or weakness. Pupils are equal, round, reactive to light. Tympanic membranes (TMs) and oropharynx benign. Neck: No masses. Lungs: Clear. Heart: Regular rhythm. Abdomen: Soft, nontender, no masses. Extremities: Without clubbing, cyanosis, or edema. He has normal strength, reflexes, coordination, and sensation in all extremities. His speech is normal. PHYSICAL EXAMINATION: Vital signs: Per flow sheet, oxygen saturation 95% on five liters, 70% on room air, afebrile. General appearance: Morbidly obese, lying in bed, able to speak in full sentences, feeling better than she did upon arrival. Pupils equal and reactive to light. Tympanic membranes (TMs) and oropharynx benign, thick neck, narrow airway. Lungs: Expiratory wheezes both bases. Heart: Regular rhythm, no murmur. Abdomen: Obese, nontender, no masses. Extremities: Without clubbing or cyanosis, 1+ peripheral edema. Normal strength in the arms and legs. LABORATORY DATA: White count 10.2, hemoglobin 14.1, platelets 242, sodium 139, potassium 5.2, BUN 15, creatinine 0.9, glucose 152, ALT 49, AST 104, alkaline phosphatase 174, bilirubin normal, BNP 951, TSH normal. Flu screen negative. IMPRESSION: 1. Exacerbation of chronic obstructive pulmonary disease (COPD) secondary to presumed bronchitis. The patient will be admitted to a medical bed and started on intravenous steroids, nebulized bronchodilator. There is no nimisha infiltrate apparently on the x-rays and oral antibiotics should be sufficient. 2. Obstructive sleep apnea (ANTONIETA). She can use her continuous positive airway pressure (CPAP). Dr. Soto sees her for obstructive sleep apnea (ANTONIETA). 3. Hypertensive heart disease. Continue her antihypertensives. 4. Type 2 diabetes. Continue metformin. Finger stick blood sugars ordered twice a day. 5. History of depression. Continue her antidepressant medications. 6. Hyperlipidemia. Continue atorvastatin 10 mg daily. 7. Chronic back pain. Continue her baclofen and acetaminophen. Try to limit opiate use, particularly with the current pulmonary problems.
[2019-02-15 17:40] VITALS: BP 160/80
[2019-02-15] MEDS: FUROSEMIDE 20 MG/2 ML VIAL (J1940) IV SCH (17:58)
[2019-02-15] MEDS: IPRATROPIUM 0.5MG/ALBUTEROL 2.5MG INH SOL UD 3ML (DUONEB)(J7620) NEB SCH (18:36)
--- NOTE | 2019-02-15 20:10 | ECGEPIP ---
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
[2019-02-15] MEDS: hydrOXYzine 25 MG TAB PO SCH (20:29)
[2019-02-15] MEDS: DOXYCYCLINE HYCLATE 100 MG TAB PO SCH (20:29)
[2019-02-15 22:00] VITALS: BP 120/82
[2019-02-16] MEDS: IPRATROPIUM 0.5MG/ALBUTEROL 2.5MG INH SOL UD 3ML (DUONEB)(J7620) NEB SCH ×4 (01:05→19:32)
[2019-02-16] MEDS: methylPREDNISolone INJ 125 MG/2 ML VIAL (J2930) IV SCH ×2 (01:05→12:50)
[2019-02-16 02:00] VITALS: BP 106/50
[2019-02-16 06:00] VITALS: BP 122/49
[2019-02-16 06:48] LABS: HEMATOCRIT 46.4 % (36.0-47.0); HEMOGLOBIN 14.4 g/dl (12.0-15.5); MEAN CORPUSCULAR HEMOGLOBIN 31.2 pg (27.0-33.0); MEAN CORPUSCULAR VOLUME 100.4 fl (80.0-96.0); PLATELET COUNT, AUTOMATED 237 10^3/uL (150-450); RED BLOOD COUNT 4.62 10^6/uL (4.00-5.40); WHITE BLOOD COUNT 8.4 10^3/uL (4.0-10.0)
[2019-02-16 07:20] LABS: CALCIUM LEVEL 9.1 MG/DL (8.5-10.1); CREATININE FOR GFR 1.1 MG/DL (0.55-1.30); GLOMERULAR FILTRATION RATE 54.5 (>51); POTASSIUM SERUM 4.1 MEQ/L (3.5-5.1)
[2019-02-16] MEDS: SYMBICORT 160/4.5MCG INHALER 6GM INH SCH (07:36)
[2019-02-16] MEDS: ENOXAPARIN 40 MG/0.4 ML SYRINGE (J1650) SC SCH (08:59)
[2019-02-16] MEDS: FUROSEMIDE 20 MG/2 ML VIAL (J1940) IV SCH ×2 (08:59→18:01)
[2019-02-16] MEDS ORDERED: FLUBLOK(EGG FREE)(QUAD)INFLUENZA VACC 0.5ML SYRINGE (90682)18YRS&OLDER IM ONE (09:00)
[2019-02-16] MEDS: metFORMIN (GLUCOPHAGE) 500 MG TAB PO SCH ×3 (09:00→09:11)
[2019-02-16] MEDS: MONTELUKAST 10 MG TAB PO SCH (09:02)
[2019-02-16] MEDS: hydrOXYzine 25 MG TAB PO SCH ×2 (09:06→20:29)
[2019-02-16] MEDS: SERTRALINE 100 MG TAB PO SCH (09:06)
[2019-02-16] MEDS: BACLOFEN 10 MG TAB PO SCH (09:06)
[2019-02-16] MEDS: DULoxetine 30 MG CAP (CYMBALTA) PO SCH (09:06)
[2019-02-16] MEDS: ATORVASTATIN 10 MG TAB PO SCH (09:06)
[2019-02-16] MEDS: LISINOPRIL 5 MG TAB PO SCH (09:06)
[2019-02-16] MEDS: CETIRIZINE (ZyrTEC) 10 MG TAB PO SCH (09:06)
[2019-02-16] MEDS: DOXYCYCLINE HYCLATE 100 MG TAB PO SCH ×2 (09:06→20:29)
[2019-02-16 10:00] VITALS: BP 111/68
[2019-02-16] MEDS ORDERED: DEXTROSE 50% 50 ML SYRINGE IV PRN (11:15)
[2019-02-16] MEDS ORDERED: GLUCOSE 4 GM CHEW TABLET PO PRN (11:15)
[2019-02-16] MEDS ORDERED: GLUCAGON FOR INJ 1 MG VIAL (J1610) SC PRN (11:15)
--- NOTE | 2019-02-16 11:38 | IPNPDOC ---
Text Note Date of Service The patient was seen on 02/16/19. NOTE Subjective: -Feels jittery and had insomnia due to the steroids, per patient, otherwise much better than when she first presented, would like to go home -On 5L NC this morning with no complaints, asking to have the O2 reduced if possible Objective: Vitals: see below General appearance: Morbidly obese, sitting up in chair, speaking in full sentences Eyes: PERRLA, EOMI, no injection, anicteric ENT: oropharynx clear with no posterior exudates or erythema, thick neck Lungs: CTAB, mildly diminished at R base, no wheezing this morning, no crackles Heart: RRR, no mrg Abdomen: Obese, nontender, no hepatosplenomegaly Extremities: Trace LE peripheral edema, otherwise WWP with good pulses bilaterally Neuro: Cranial nerves 2-12 intact, Normal strength in the arms and legs. Labs: Reviewed Imaging: Reviewed Assessment: 58 yo woman with ANTONIETA, CKD, COPD, HTN, HLD who presented with SOB and cough and found to be hypoxemic and thus admitted for a COPD exacerbation presumed secondary to bronchitis with an unremarkable CXR with no nimisha opacities who now feels much better since starting steroids, antibiotics and oxygen. 1. Exacerbation of chronic obstructive pulmonary disease (COPD) secondary to presumed bronchitis. -no nimisha infiltrate x-ray -s/p zosyn x 1 dose, now on day 2 of oral doxycycline for a total 5 day course -continue solumedrol 60 IV BID for now, will switch to pred 40 for a total 5 days after hypoxemia improves -hypoxemia persists --> was on 5L this morning --> working with nursing to downtitrate. Of note, patient reports that providers have previously tried to start her on supplemental oxygen senior care but she has declined the idea of walking around with tanks. She might have long standing baseline hypoxemia on room air. For now, will treat with antibiotics, steroids, bronchodilator therapy, offer incentive spirometry and monitor for improvement of her hypoxemia to determine an appropriate baseline. -no flu per swab -f/u sputum culture and procalcitonin -titrate O2 to goal 88-92% -incentive spirometry 2. Obstructive sleep apnea (ANTONIETA). -Continue home CPAP 3. Hypertensive heart disease. -continue home lisinopril -continue lasix 20 IV BID for now 4. Type 2 diabetes. -Hold home metformin. -SSI, FSBG AC/HS -consistent carb diet 5. History of depression. -Continue home antidepressant medications. 6. Hyperlipidemia. -Continue atorvastatin 10 mg daily. 7. Chronic back pain. -Continue her baclofen and acetaminophen. DVT ppx: lovenox 40 subcutaneous daily Dispo: pending clinical improvement, still quite hypoxemic VS,Fishbone, I+O VS, Fishbone, I+O Laboratory Tests 02/15/19 12:10 Red Blood Count 4.62, Mean Corpuscular Volume 96.1 H, Mean Corpuscular Hemo globin 30.5, Mean Corpuscular Hemoglobin Concent 31.8 L, Red Cell Distribution Width 14.3, Neutrophils (%) (Auto) 83.0 H, Lymphocytes (%) (Auto) 7.9 L, Monocytes (%) (Auto) 7.6 H, Eosinophils (%) (Auto) 0.3, Basophils (%) (Auto) 0.3, Neutrophils # (Auto) 8.5, Lymphocytes # (Auto) 0.8 L, Monocytes # (Auto) 0.8, Eosinophils # (Auto) 0.0, Basophils # (Auto) 0.0 02/16/19 06:11 Red Blood Count 4.62, Mean Corpuscular Volume 100.4 H, Mean Corpuscular Hemoglobin 31.2, Mean Corpuscular Hemoglobin Concent 31.0 L, Red Cell Distribution Width 14.3, Calcium Level 9.1 Vital Signs Date Time Temp Pulse Resp B/P (MAP) Pulse Ox O2 Delivery O2 Flow Rate FiO2 02/16/19 10:00 98.7 95 24 111/68 (82) 90 5.0 02/15/19 17:29 Nasal Cannula I&O- Last 24 Hours up to 6 AM 02/16/19 05:59 Intake Total 650 ml Output Total 2800 ml Balance -2150 ml YAKELIN CUEVAS MD Feb 16, 2019 11:37
[2019-02-16] MEDS: HumaLOG INSULIN (NovoLOG) PER UNIT SC SCH ×3 (12:50→20:29)
[2019-02-16 14:00] VITALS: BP 111/68
--- NOTE | 2019-02-16 14:08 | ECHO ---
DATE OF STUDY: 02/16/2019 REFERRING PHYSICIAN: Dr. Bean Dhaliwal INDICATION: Dyspnea. HEIGHT: 157 cm. WEIGHT: 136 kg. 2-D MEASUREMENTS: Left atrium: 3.7 cm Aortic annulus: 2.2 cm Ventricular septum: 1.25 cm Posterior wall: 1.31 cm Left ventricle diastole: 4.7 cm Aortic root: 3.6 cm Inferior vena cava: 2.2 cm with approximately 50% respiratory variation DOPPLER MEASUREMENTS: Aortic valve velocity: 194 cm/sec LVOT velocity: 147 cm/sec LVOT VTI: 27.7 cm Mitral E velocity: 80.8 cm/sec Mitral A velocity: 120 cm/sec Mitral deceleration time: 232 ms No aortic regurgitation No mitral regurgitation Very mild tricuspid regurgitation No pulmonic regurgitation MITRAL ANNULAR TISSUE DOPPLER: E prime septal: 6.6 cm/sec E prime lateral: 7.1 cm/sec DESCRIPTION: The rhythm was sinus. This was a moderately technically difficult echocardiogram. No pericardial effusion. This was a 2-D, M-mode, color flow Doppler and pulse wave Doppler examination and included mitral annular tissue Doppler. CONCLUSIONS: 1. Mild concentric left ventricular hypertrophy. Normal regional LV wall motion and wall thickening. Normal LV systolic function. LVEF 70% by visual estimate. Grade 1 LV diastolic dysfunction (impaired relaxation filling pattern). 2. Normal right ventricle size and systolic function. Unable to assess pulmonary artery systolic pressure on the study. Central venous pressure estimated to be approximately 10 mmHg at the time of the study.
[2019-02-16 18:00] VITALS: BP 131/86
[2019-02-16 22:00] VITALS: BP 101/53
[2019-02-17] MEDS: methylPREDNISolone INJ 125 MG/2 ML VIAL (J2930) IV SCH (00:11)
[2019-02-17 02:00] VITALS: BP 128/71
[2019-02-17] MEDS: IPRATROPIUM 0.5MG/ALBUTEROL 2.5MG INH SOL UD 3ML (DUONEB)(J7620) NEB SCH ×5 (03:20→23:19)
[2019-02-17 06:00] VITALS: BP 128/70
[2019-02-17 06:24] LABS: HEMATOCRIT 44.1 % (36.0-47.0); HEMOGLOBIN 13.6 g/dl (12.0-15.5); MEAN CORPUSCULAR HEMOGLOBIN 30.2 pg (27.0-33.0); MEAN CORPUSCULAR HGB CONC 30.8 g/dl (32.0-36.5); MEAN CORPUSCULAR VOLUME 97.8 fl (80.0-96.0); PLATELET COUNT, AUTOMATED 255 10^3/uL (150-450); RED BLOOD COUNT 4.51 10^6/uL (4.00-5.40); WHITE BLOOD COUNT 10.4 10^3/uL (4.0-10.0)
[2019-02-17 06:49] LABS: CALCIUM LEVEL 9.1 MG/DL (8.5-10.1); CREATININE FOR GFR 1.25 MG/DL (0.55-1.30)
[2019-02-17] MEDS: SYMBICORT 160/4.5MCG INHALER 6GM INH SCH (07:45)
--- NOTE | 2019-02-17 08:12 | IPNPDOC ---
Text Note Date of Service The patient was seen on 02/17/19. NOTE Subjective: -Improved hypoxemia, now on 2L NC from 5L -solumedrol giving her insomnia and restlessness, eager to get home Objective: Vitals: see below General appearance: Morbidly obese, sitting up in chair, speaking in full sentences Eyes: PERRLA, EOMI, no injection, anicteric ENT: oropharynx clear with no posterior exudates or erythema, thick neck Lungs: CTAB, continues to be mildly diminished at R base, no wheezing this morning, no crackles Heart: RRR, no mrg Abdomen: Obese, nontender, no hepatosplenomegaly Extremities: Trace LE peripheral edema, otherwise WWP with good pulses bilaterally Neuro: Cranial nerves 2-12 intact, Normal strength in the arms and legs. Labs: Reviewed Imaging: Reviewed Assessment: 58 yo woman with ANTONIETA, CKD, COPD, HTN, HLD who presented with SOB and cough and found to be hypoxemic and thus admitted for a COPD exacerbation presumed secondary to bronchitis with an unremarkable CXR with no nimisha opacities who now feels much better since starting steroids (though poor sleep and jittery), antibiotics and oxygen. 1. Exacerbation of chronic obstructive pulmonary disease (COPD) secondary to presumed bronchitis. -no nimisha infiltrate x-ray -s/p zosyn x 1 dose, now on day 3 of oral doxycycline for a total 5 day course -discontinue solumedrol 60 IV BID and finish off 5 day course with prednisone 40mg daily -hypoxemia improved, now on 2L, continue to downtitrate as tolerated. 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 She might have long standing baseline hypoxemia on room air. For now, will treat with antibiotics, steroids, bronchodilator therapy, encourage incentive spirometry and monitor for improvement of her hypoxemia to determine an appropriate baseline. -no flu per swab -f/u sputum culture--> GPCs in chains -titrate O2 to goal 88-92% -encourage incentive spirometry 2. Obstructive sleep apnea (ANTONIETA). -Continue home CPAP 3. Hypertensive heart disease. -continue home lisinopril -discontinue lasix 20 IV BID, with creatinine bump 4. Type 2 diabetes. -continue holding home metformin. -SSI, FSBG AC/HS -start Levemir 10U for persistent hyperglycemia -consistent carb diet 5. History of depression. -Continue home antidepressant medications. 6. Hyperlipidemia. -Continue atorvastatin 10 mg daily. 7. Chronic back pain. -Continue her baclofen and acetaminophen. DVT ppx: lovenox 40 subcutaneous daily Dispo: pending clinical improvement VS,Fishbone, I+O VS, Fishbone, I+O Laboratory Tests 02/17/19 06:04 Red Blood Count 4.51, Mean Corpuscular Volume 97.8 H, Mean Corpuscular Hemoglobin 30.2, Mean Corpuscular Hemoglobin Concent 30.8 L, Red Cell Distribution Width 14.3, Calcium Level 9.1 Vital Signs Date Time Temp Pulse Resp B/P (MAP) Pulse Ox O2 Delivery O2 Flow Rate FiO2 02/17/19 06:00 97.4 86 20 128/70 (89) 92 2.0 02/15/19 17:29 Nasal Cannula I&O- Last 24 Hours up to 6 AM 02/17/19 05:59 Intake Total 1438 ml Output Total 3000 ml Balance -1562 ml YAKELIN CUEVAS MD Feb 17, 2019 08:12
[2019-02-17] MEDS: SERTRALINE 100 MG TAB PO SCH (08:13)
[2019-02-17] MEDS: ENOXAPARIN 40 MG/0.4 ML SYRINGE (J1650) SC SCH (08:13)
[2019-02-17] MEDS: HumaLOG INSULIN (NovoLOG) PER UNIT SC SCH ×4 (08:13→20:38)
[2019-02-17] MEDS: hydrOXYzine 25 MG TAB PO SCH ×2 (08:14→20:37)
[2019-02-17] MEDS: BACLOFEN 10 MG TAB PO SCH (08:14)
[2019-02-17] MEDS: MONTELUKAST 10 MG TAB PO SCH (08:14)
[2019-02-17] MEDS: DULoxetine 30 MG CAP (CYMBALTA) PO SCH (08:14)
[2019-02-17] MEDS: ATORVASTATIN 10 MG TAB PO SCH (08:15)
[2019-02-17] MEDS: CETIRIZINE (ZyrTEC) 10 MG TAB PO SCH (08:16)
[2019-02-17] MEDS: LISINOPRIL 5 MG TAB PO SCH (08:17)
[2019-02-17] MEDS: predniSONE 20 MG TAB PO SCH (09:45)
[2019-02-17 14:46] VITALS: BP 116/54
[2019-02-17] MEDS ORDERED: LEVEMIR (INSULIN DETEMIR) 1 UNITS/0.01ML SC SCH (21:00)
[2019-02-17 22:00] VITALS: BP 131/68
[2019-02-18] MEDS: IPRATROPIUM 0.5MG/ALBUTEROL 2.5MG INH SOL UD 3ML (DUONEB)(J7620) NEB SCH ×2 (01:44→08:00)
[2019-02-18 02:00] VITALS: BP 123/62
[2019-02-18 06:00] VITALS: BP 130/82
[2019-02-18 06:44] LABS: HEMATOCRIT 44.4 % (36.0-47.0); HEMOGLOBIN 13.9 g/dl (12.0-15.5); MEAN CORPUSCULAR HGB CONC 31.3 g/dl (32.0-36.5); MEAN CORPUSCULAR VOLUME 95.9 fl (80.0-96.0); PLATELET COUNT, AUTOMATED 267 10^3/uL (150-450); RED BLOOD COUNT 4.63 10^6/uL (4.00-5.40); WHITE BLOOD COUNT 9.6 10^3/uL (4.0-10.0)
[2019-02-18 07:11] LABS: CALCIUM LEVEL 9.2 MG/DL (8.5-10.1); CREATININE FOR GFR 1.07 MG/DL (0.55-1.30); GLOMERULAR FILTRATION RATE 56.3 (>51); POTASSIUM SERUM 3.4 MEQ/L (3.5-5.1)
[2019-02-18] MEDS: HumaLOG INSULIN (NovoLOG) PER UNIT SC SCH ×2 (07:30→12:21)
[2019-02-18] MEDS: SYMBICORT 160/4.5MCG INHALER 6GM INH SCH (07:42)
[2019-02-18] MEDS: MONTELUKAST 10 MG TAB PO SCH (09:04)
[2019-02-18] MEDS: ATORVASTATIN 10 MG TAB PO SCH (09:05)
[2019-02-18] MEDS: CETIRIZINE (ZyrTEC) 10 MG TAB PO SCH (09:05)
[2019-02-18] MEDS: DULoxetine 30 MG CAP (CYMBALTA) PO SCH (09:05)
[2019-02-18] MEDS: SERTRALINE 100 MG TAB PO SCH (09:05)
[2019-02-18] MEDS: predniSONE 20 MG TAB PO SCH (09:05)
[2019-02-18 09:06] VITALS: BP 130/82
[2019-02-18] MEDS: hydrOXYzine 25 MG TAB PO SCH (09:06)
[2019-02-18] MEDS: BACLOFEN 10 MG TAB PO SCH (09:06)
[2019-02-18] MEDS: LISINOPRIL 5 MG TAB PO SCH (09:06)
[2019-02-18] MEDS: ENOXAPARIN 40 MG/0.4 ML SYRINGE (J1650) SC SCH (09:07)
[2019-02-18] MEDS ORDERED: POTASSIUM CHLORIDE 10 MEQ SR TABLET PO ONE (10:00)
[2019-02-18 10:15] VITALS: BP 131/82
[2019-02-18] MEDS ORDERED: CEFU1TAB22 PO (13:01)
[2019-02-18] MEDS ORDERED: DOXY-350 PO (13:01)
[2019-02-18] MEDS ORDERED: PRED20TA PO (13:01)
--- NOTE | 2019-02-18 13:07 | DS.PDOC ---
Discharge Summary General Date of Admission Feb 15, 2019 at 15:19 Date of Discharge 02/18/2019 Attending Physician: YAKELIN CUEVAS MD Discharge Summary PROCEDURES PERFORMED DURING STAY: None ADMITTING DIAGNOSES: 1. COPD exacerbation DISCHARGE DIAGNOSES: 1. Community acquired pneumonia 2. Hypoxemic respiratory failure (now resolved) 3. COPD exacerbation 4. Hypertension 5. ANTONIETA COMPLICATIONS/CHIEF COMPLAINT: Copd Exacerbation. HISTORY OF PRESENT ILLNESS: 58-year-old woman with a history of morbid obesity, COPD, ANTONIETA, CKD, degenerative arthritis, fibromyalgia, hypertension, hyperlipidemia and depression who presented to the ED reporting having increasing trouble breathing for 4 or 5 days, that started with an upper respiratory infection with chest congestion, cough, and wheezing. HOSPITAL COURSE: She presented to the emergency room with an oxygen saturation of 70% on room air and was started on supplemental oxygen. She was otherwise afebrile and normotensive. Initial work up was notable for no significant leukocytosis, negative flu PCR, with a CXR that showed no nimisha opacities and a CTA that showed no PE with scattered multiple ground-glass densities in all lobes of each lung today as an interval change. She had one dose zosyn and admitted for a COPD exacerbation with moderate hypoxemic respiratory failure requiring 5L of supplemental oxygen, when she requires none at baseline. On the floor, she was switched to oral doxycycline for presumed bronchitis and was started on solumedrol 60 IV BID. Her hypoxemic finally improved on day 3 and she was switched from solumedrol IV to pred 40 with a goal of a 5 day course. Her hypoxemia continued to improve and was on room air on the morning of discharge. In the meantime, her sputum grew klebsiella. Nursing worked with her and an ambulatory saturation was documented at 90%. She is now being discharged home to complete the remaining 2 days of steroid and a course of ceftin/doxy antibiotic therapy with close PCP follow up. She otherwise continued all her other home medications as prescribed. PHYSICAL EXAMINATION ON DISCHARGE: VITAL SIGNS: Please see below. LABORATORY DATA: Please see below. IMAGIN02/15/2019: CTA PE protocol: There are no emboli in the pulmonary trunk or central pulmonary arteries. There are no emboli in the pulmonary lobe or segment branches. There are multiple ground-glass densities in all lobes of each lung today as an interval change, this is nonspecific, and can be infectious, inflammatory or neoplastic. Follow-up is recommended. There are no pleural effusions. There is no mediastinal, hilar or axillary lymphadenopathy. The thoracic aorta is unremarkable. Cardiac size is normal. There is no pericardial effusion. The visualized upper abdominal contents are unremarkable. 02/15/2019: CXR Nonspecific increased density inferiorly in the right lung. PROGNOSIS: Fair ACTIVITY: As tolerated DIET: Consistent carb DISCHARGE PLAN: Home to complete antibiotic course and steroids with close PCP follow up DISPOSITION: Home DISCHARGE INSTRUCTIONS: 1. To complete 5 days of ceftin/doxy twice daily and 2 days of prednisone 40. Should follow up with PCP within 1 week ITEMS TO FOLLOWUP ON ON OUTPATIENT: 1. community acquired pneumonia DISCHARGE CONDITION: Good TIME SPENT ON DISCHARGE: Greater than 30 minutes. Vital Signs/I&Os Vital Signs Date Time Temp Pulse Resp B/P (MAP) Pulse Ox O2 Delivery O2 Flow Rate FiO2 02/18/19 11:02 1.5 02/18/19 10:22 94 02/18/19 10:15 98.0 89 18 131/82 (98) 02/18/19 01:44 Room Air I&O- Last 24 Hours up to 6 AM 02/18/19 06:00 Intake Total 1826 ml Output Total 1300 ml Balance 526 ml Laboratory Data Labs 24H Laboratory Tests 2 02/17/19 17:01: Bedside Glucose (Misc Panel) 260H 02/17/19 20:24: Bedside Glucose (Misc Panel) 333H 02/18/19 06:05: Nucleated Red Blood Cells % (auto) 0.0, Anion Gap 5L, Glomerular Filtration Rate 56.3, Blood Urea Nitrogen 42H, Creatinine 1.07, Sodium Level 141, Potassium Level 3.4L, Chloride Level 102, Carbon Dioxide Level 34H, Calcium Level 9.2 02/18/19 11:48: Bedside Glucose (Misc Panel) 136H CBC/BMP Laboratory Tests 02/18/19 06:05 Red Blood Count 4.63, Mean Corpuscular Volume 95.9, Mean Corpuscular Hemoglobin 30.0, Mean Corpuscular Hemoglobin Concent 31.3 L, Red Cell Distribution Width 14.4, Calcium Level 9.2 FSBS Laboratory Tests Test 02/17/19 17:01 02/17/19 20:24 02/18/19 11:48 Range/Units Bedside Glucose (Misc Panel) 260 333 136 70-105 MG/DL Microbiology Microbiology 02/16/19 Gram Stain - Final, Complete 02/16/19 Sputum Culture - Final, Complete Klebsiella Oxytoca 02/15/19 Blood Culture - Preliminary, Resulted No Growth after 48 hours. All Specime... 02/15/19 Blood Culture - Preliminary, Resulted No Growth after 48 hours. All Specime... Discharge Medications Scheduled Aripiprazole (Aripiprazole) 5 Mg Tablet, 2.5 MG PO QHS, (Reported) DUE TO CURRENT DEHYDRATION PATIENT WAS TOLD TO STOP TAKING FOR THE TIME BEING. Atorvastatin Calcium (Atorvastatin Calcium) 10 Mg Tab, 10 MG PO DAILY, (Reported) Baclofen (Baclofen) 10 Mg Tablet, 10 MG PO DAILY, (Reported) Budesonide/Formoterol (Symbicort 160-4.5 Mcg Inhaler) 60 Puff/Inhaler Aers, 2 PUFF INH DAILY, (Reported) Cetirizine HCl (Cetirizine HCl) 10 Mg Tablet, 10 MG PO DAILY, (Reported) Doxycycline Monohydrate (Doxycycline) 100 Mg Capsule, 100 MG PO BID Duloxetine Hcl (Duloxetine HCl) 60 Mg Capsule.dr, 60 MG PO DAILY, (Reported) Hydroxyzine HCl (Hydroxyzine HCl) 25 Mg Tablet, 25 MG PO BID, (Reported) Lisinopril (Lisinopril) 5 Mg Tablet, 5 MG PO DAILY, (Reported) Metformin HCl (Metformin HCl) 500 Mg Tab, 500 MG PO DAILY, (Reported) Montelukast Sodium (Singulair) 10 Mg Tab, 10 MG PO DAILY, (Reported) Prednisone (Prednisone) 20 Mg Tablet, 40 MG PO DAILY Sertraline HCl (Sertraline HCl) 100 Mg Tablet, 100 MG PO DAILY, (Reported) Triamterene/Hydrochlorothiazid (Dyazide 37.5-25 Capsule) 1 Cap Cap, 1 CAP PO LUISA LY, (Reported) DIRECTED BY MD TO DISCONTINUE FOR A FEW WEEKS. cefUROXime axetil (Cefuroxime) 500 Mg Tablet, 500 MG PO BID Scheduled PRN Albuterol Sulfate (Proair Hfa) 108 Mcg/Act Aer, 2 PUFF INH Q4H PRN for SOB/WHEEZING, (Reported) Hydrocodone/Acetaminophen (Hydrocodone-Acetamin 5-325 mg) 1 Each Tablet, 1 TAB PO Q4H PRN for PAIN, (Reported) Allergies Coded Allergies: quetiapine (Verified Allergy, Severe, tongue swelling, 02/15/19) latex (Verified Allergy, Intermediate, hives, 02/15/19) levofloxacin (Verified Allergy, Intermediate, rash, 02/15/19) metaxalone (Verified Allergy, Intermediate, rash, 02/15/19) YAKELIN CUEVAS MD Feb 18, 2019 13:07
== END 2019-02-18 14:10 | disposition home or self-care (01) | DRG 177 ==
LOC: M ED 11:40 → M ED INP 15:19 → M MS5PR 17:38
PROVIDERS: ADMIT Family Medicine; ATTEND Internal Medicine
DX: J15.0 Pneumonia due to Klebsiella pneumoniae (principal); J96.91 Respiratory failure, unspecified with hypoxia; J44.0 Chronic obstructive pulmonary disease with (acute) lower respiratory infection; N18.4 Chronic kidney disease, stage 4 (severe); J44.1 Chronic obstructive pulmonary disease with (acute) exacerbation; G47.33 Obstructive sleep apnea (adult) (pediatric); M79.7 Fibromyalgia; M19.90 Unspecified osteoarthritis, unspecified site; F32.9 Major depressive disorder, single episode, unspecified; E11.22 Type 2 diabetes mellitus with diabetic chronic kidney disease; E66.01 Morbid (severe) obesity due to excess calories; F41.9 Anxiety disorder, unspecified; I13.10 Hypertensive heart and chronic kidney disease without heart failure, with stage 1 through stage 4 chronic kidney disease, or unspecified chronic kidney disease; E78.5 Hyperlipidemia, unspecified; M54.9 Dorsalgia, unspecified; Z88.1 Allergy status to other antibiotic agents; Z88.6 Allergy status to analgesic agent; Z88.8 Allergy status to other drugs, medicaments and biological substances; Z91.040 Latex allergy status; F17.200 Nicotine dependence, unspecified, uncomplicated; Z79.891 Long term (current) use of opiate analgesic; Z79.84 Long term (current) use of oral hypoglycemic drugs; Z79.899 Other long term (current) drug therapy

== ENCOUNTER → 2019-04-08 | Outpatient (REF) | payer MEDICARE, MEDICAID ==
[~2019-04-08] MED LIST changes: +ARIP1TAB6 PO; +BACL1TAB8 PO; +CEFU1TAB22 PO; +CETI10TA4 PO; +DOXY-350 PO; +DULO1CAP6 PO; +HYDR-3363 PO; +HYDR-3713 PO; +LISI-542 PO; +SERT-138 PO
[2019-04-08 13:59] LABS: BASO % 0.5 % (0.0-1.0); EOS # 0.2 10^3/uL (0.0-0.5); EOS % 3.2 % (0.0-3.0); HEMOGLOBIN 15.8 g/dl (12.0-15.5); LYMPH # 1.7 10^3/uL (1.5-5.0); LYMPH % 26.1 % (24.0-44.0); MEAN CORPUSCULAR HEMOGLOBIN 29.8 pg (27.0-33.0); MEAN CORPUSCULAR HGB CONC 30.4 g/dl (32.0-36.5); MEAN CORPUSCULAR VOLUME 97.9 fl (80.0-96.0); MONO # 0.6 10^3/uL (0.0-0.8); MONO % 9.3 % (0.0-5.0); NEUTROPHILS % 60.4 % (36.0-66.0); PLATELET COUNT, AUTOMATED 276 10^3/uL (150-450); RED BLOOD COUNT 5.31 10^6/uL (4.00-5.40); WHITE BLOOD COUNT 6.6 10^3/uL (4.0-10.0)
[2019-04-08 14:34] LABS: ALBUMIN 3.2 GM/DL (3.2-5.2); BILIRUBIN,TOTAL 0.4 MG/DL (0.2-1.0); CALCIUM LEVEL 9.5 MG/DL (8.5-10.1); CHOLESTEROL RISK RATIO 3.115 (<5); CREATININE FOR GFR 1.02 MG/DL (0.55-1.30); FREE T4 0.94 NG/DL (0.76-1.46); GLOMERULAR FILTRATION RATE 59.5 (>51); POTASSIUM SERUM 4.5 MEQ/L (3.5-5.1); THYROID STIMULATING HORMONE 1.63 uIU/ML (0.358-3.740); TOTAL PROTEIN 6.9 GM/DL (6.4-8.2)
[2019-04-08 16:32] LABS: HEMOGLOBIN A1c 7.9 %
== END ==
LOC: M LAB REF 13:01
PROVIDERS: ATTEND Nurse Practitioner Family
DX: I10 Essential (primary) hypertension (principal); E78.5 Hyperlipidemia, unspecified

== ENCOUNTER → 2019-07-16 | Outpatient (REF) | payer MEDICARE, MEDICAID ==
[2019-07-16 17:30] LABS: BASO % 0.5 % (0.0-1.0); EOS # 0.2 10^3/uL (0.0-0.5); EOS % 2.7 % (0.0-3.0); HEMATOCRIT 53.1 % (36.0-47.0); HEMOGLOBIN 16.8 g/dl (12.0-15.5); LYMPH # 1.8 10^3/uL (1.5-5.0); LYMPH % 24.3 % (24.0-44.0); MEAN CORPUSCULAR HEMOGLOBIN 29.6 pg (27.0-33.0); MEAN CORPUSCULAR HGB CONC 31.6 g/dl (32.0-36.5); MEAN CORPUSCULAR VOLUME 93.5 fl (80.0-96.0); MONO # 0.7 10^3/uL (0.0-0.8); MONO % 9.2 % (0.0-5.0); NEUTROPHILS # 4.6 10^3/uL (1.5-8.5); PLATELET COUNT, AUTOMATED 259 10^3/uL (150-450); RED BLOOD COUNT 5.68 10^6/uL (4.00-5.40); WHITE BLOOD COUNT 7.3 10^3/uL (4.0-10.0)
[2019-07-16 18:09] LABS: HEMOGLOBIN A1c 7.4 %
[2019-07-16 18:21] LABS: ALBUMIN 3.7 GM/DL (3.2-5.2); ALT/SGPT 28 U/L (12-78); BILIRUBIN,TOTAL 0.8 MG/DL (0.2-1.0); BLOOD UREA NITROGEN 24 MG/DL (7-18); CALCIUM LEVEL 9.5 MG/DL (8.5-10.1); CARBON DIOXIDE LEVEL 33 MEQ/L (21-32); CHLORIDE LEVEL 101 MEQ/L (98-107); CREATININE FOR GFR 0.84 MG/DL (0.55-1.30); GLOMERULAR FILTRATION RATE > 60.0 (>51); GLUCOSE, FASTING 114 MG/DL (70-100); POTASSIUM SERUM 4.4 MEQ/L (3.5-5.1); SODIUM LEVEL 138 MEQ/L (136-145); TOTAL PROTEIN 7.4 GM/DL (6.4-8.2)
== END ==
LOC: M LAB REF 16:45
PROVIDERS: ATTEND Physician Assistant
DX: Z01.818 Encounter for other preprocedural examination (principal); M18.12 Unilateral primary osteoarthritis of first carpometacarpal joint, left hand; G56.01 Carpal tunnel syndrome, right upper limb; E11.9 Type 2 diabetes mellitus without complications

== ENCOUNTER 2019-08-06 06:03 | Day surgery (SDC) | payer MEDICARE, MEDICAID ==
[~2019-08-06] VITALS: Ht 157.5 cm; Wt 136.9 kg
[~2019-08-06 06:03] MED LIST changes: +LIDOCAINE 1% MDV 20ML VIAL SQ PRN; +LR 1,000 ML IV ONE
[2019-08-06] MEDS ORDERED: MIDAZOLAM INJ 2 MG/2 ML VIAL (J2250) As Ordered ONE (07:09)
[2019-08-06] MEDS ORDERED: propofoL 500 MG/50 ML VIAL As Ordered ONE (07:09)
[2019-08-06] MEDS ORDERED: fentaNYL 100 MCG/2 ML INJECTION (J3010) As Ordered ONE (07:09)
[2019-08-06] MEDS ORDERED: ONDANSETRON 4MG/2ML VIAL (J2405) As Ordered ONE (07:10)
[2019-08-06] MEDS ORDERED: KETOROLAC 60 MG/2 ML VIAL (J1885) As Ordered ONE (07:10)
[2019-08-06] MEDS ORDERED: LIDOCAINE 2% INJ 100 MG/5 ML SDV (FOR ANES.) As Ordered ONE (07:10)
[2019-08-06] MEDS ORDERED: dexameTHASONE 4 MG/ML 1ML VIAL (J1100) As Ordered ONE (07:10)
[2019-08-06] MEDS ORDERED: ceFAZolin SOD 2 GM in IV 1 EA IV ONE (07:30)
[2019-08-06] MEDS ORDERED: BUPIVACAINE/EPIN 0.25% 30 ML VIAL As Ordered ONE (07:37)
[2019-08-06] MEDS ORDERED: oxyCODONE 5MG TAB As Ordered ONE (09:00)
[2019-08-06] MEDS ORDERED: LR 1,000 ML IV SCH (09:00)
[2019-08-06] MEDS ORDERED: ONDANSETRON 4MG/2ML VIAL (J2405) IV PRN (09:00)
[2019-08-06] MEDS ORDERED: oxyCODONE 5MG TAB PO PRN ×3 (09:00→09:15)
[2019-08-06 10:25] VITALS: BP 124/64
--- NOTE | 2019-08-07 13:09 | RO ---
DATE OF PROCEDURE: 08/06/2019 PREOPERATIVE DIAGNOSES: Left carpal tunnel syndrome and basal joint arthritis. POSTOPERATIVE DIAGNOSES: Left carpal tunnel syndrome and basal joint arthritis. PROCEDURES: 1. Left open carpal tunnel release. 2. Basal joint arthroplasty with ligament reconstruction, tendon interposition. SURGEON: Michoacano Flaherty MD BEADWORKER: Kristin Lopes, who was essential for retraction during elliott portions of the procedure. ANESTHESIA: INDICATIONS: A 58-year-old female who has failed nonoperative modes of treatment. We discussed the risks and benefits of this procedure including, but not limited to, infection, damage to surrounding structures, incomplete relief, and the patient wished to proceed. ANTIBIOTICS: 2 grams of Ancef. COMPLICATIONS: None. TOURNIQUET TIME: 45 minutes. BLOOD LOSS: Minimal. SPECIMENS: None. OPERATIVE DESCRIPTION: Patient was brought back to the operating room (OR) in the supine position and underwent general anesthesia, at which point the left arm was prepped and draped in the usual fashion. We then had a time-out confirming site, side, and surgery. Once all in agreement, we injected 20 mL of 0.25% Marcaine over the various incisions. We then exsanguinated the limb and elevated tourniquet up 250 mmHg. We then made a longitudinal incision in line with Alvarado line and ulnar border of the 4th digit. We sharply dissected down with retraction, transecting the transverse carpal ligament, identifying the median nerve, along with the distal extent of the antebrachial fascia, at which point we had adequate release. We irrigated the wound thoroughly and closed with #2-0 nylon. We then turned our attention to the thumb. We made a longitudinal incision in line with the radial styloid in the base of the 1st metacarpal. We sharply dissected the subcutaneous tissue, careful to identify and preserve superficial sensory branch of radial nerve, at which point we then split between abductor pollicis longus (APL) and extensor pollicis brevis (EPB), identified the radial artery and protected it with a Cecilia. We then made our 1st carpometacarpal (CMC) capsulotomy, exposing the trapezium. We were able to take out the trapezium whole using a rongeur with the aid of a #15 blade and Mathews blade. We then used a rongeur to make a trough within the base of the articular cartilage of the 1st metacarpal, at which point we then identified the flexor carpi radialis (FCR) at the distal wrist crease. Used a hemostat to pull it out of the wound. We then traced up proximally toward the musculotendinous junction, made another transverse incision, identified the FCR tendon, elevated it out of the wound with hemostats. Once we confirmed that this was indeed the proximal side of the FCR, we transected it proximally and pulled it out distally, at which point we used an osteotome to remove muscle belly, and then we used a hemostat to pull it out of the base of the 1st CMC wound, at which point we then used a #2-0 Ethibond to go through the metaphysis of the 1st metacarpal to view our trough and then through the FCR tendon while on tension to help prevent subluxation for reconstruction of our tendon by reconstruction of our ligament and then back through the trough and up through the metaphysis and tied it securely overneath the 1st metacarpal, at which point we used a #3-0 Prolene tagged at the base of the wound, attached to the FCR, then created our anchovy, and tied it into place, at which point we irrigated the wound thoroughly and made sure we removed all bone debris. We then closed the capsule over top with #3-0 Vicryl, subcutaneous tissue with #3-0 Vicryl, and skin with #2-0 nylon. Also, during our approach down to the 1st CMC, once we split the two components of the 1st extensor compartment, we released the 1st dorsal extensor compartment to help with that exposure. The patient was dressed with Adaptic gauze, sterile Webril, thumb spica splint, and an Marek. Tourniquet was let down. The patient was awakened and taken to postanesthesia care unit (PACU) in stable condition. POSTOPERATIVE PLAN: Patient will work on pain control and finger range of motion. At the 2-week visit, sutures will be removed and she will be transitioned over to a removable thermoplastic splint made by one of the hand therapists in the area.
== END 2019-08-06 11:05 | disposition home or self-care (01) ==
LOC: M SDC 06:03
PROVIDERS: ATTEND Orthopaedic Surgery Hand Surgery
DX: G56.02 Carpal tunnel syndrome, left upper limb (principal); M18.12 Unilateral primary osteoarthritis of first carpometacarpal joint, left hand; I10 Essential (primary) hypertension; E78.5 Hyperlipidemia, unspecified; E11.9 Type 2 diabetes mellitus without complications; M79.7 Fibromyalgia; F41.9 Anxiety disorder, unspecified; F32.9 Major depressive disorder, single episode, unspecified; G47.30 Sleep apnea, unspecified; Z79.899 Other long term (current) drug therapy; Z79.84 Long term (current) use of oral hypoglycemic drugs; Z88.1 Allergy status to other antibiotic agents; Z88.8 Allergy status to other drugs, medicaments and biological substances
CPT/HCPCS: 25447; 64721; J0690; J2250; J2405; J3010

== ENCOUNTER → 2019-09-12 | Outpatient (CLI) | payer MEDICARE, MEDICAID ==
[~2019-09-12] MED LIST changes: -LIDOCAINE 1% MDV 20ML VIAL SQ PRN; -LR 1,000 ML IV ONE
[2019-09-12 16:16] LABS: APPEARANCE, URINE HAZY (CLEAR); BACTERIA, URINE AUTO NEGATIVE (NEGATIVE); BILIRUBIN, URINE AUTO NEGATIVE (NEGATIVE); BLOOD, URINE BLOOD NEGATIVE (NEGATIVE); COLOR, URINE YELLOW (YELLOW); GLUCOSE, URINE (UA) AUTO NEGATIVE (NEGATIVE); KETONE, URINE AUTO NEGATIVE (NEGATIVE); LEUKOCYTE ESTERASE, URINE AUTO NEGATIVE (NEGATIVE); NITRITE, URINE AUTO NEGATIVE (NEGATIVE); PROTEIN, URINE AUTO NEGATIVE (NEGATIVE); RBC, URINE AUTO 1 /HPF (0-3); SPECIFIC GRAVITY URINE AUTO 1.019 (1.002-1.035); SQUAMOUS EPITHELIAL CELL UR AU 4 /HPF (0-6); UROBILINOGEN, URINE AUTO 0.2 mg/dL (0.0-2.0); WBC, URINE AUTO 1 /HPF (0-3)
[2019-09-12 16:18] LABS: BASO % 0.6 % (0.0-1.0); EOS # 0.3 10^3/uL (0.0-0.5); EOS % 4.2 % (0.0-3.0); HEMATOCRIT 49.8 % (36.0-47.0); LYMPH # 1.8 10^3/uL (1.5-5.0); LYMPH % 26.7 % (24.0-44.0); MEAN CORPUSCULAR HEMOGLOBIN 29.7 pg (27.0-33.0); MEAN CORPUSCULAR HGB CONC 32.1 g/dl (32.0-36.5); MEAN CORPUSCULAR VOLUME 92.6 fl (80.0-96.0); MONO # 0.7 10^3/uL (0.0-0.8); MONO % 10.3 % (0.0-5.0); NEUTROPHILS # 3.9 10^3/uL (1.5-8.5); NEUTROPHILS % 57.9 % (36.0-66.0); PLATELET COUNT, AUTOMATED 272 10^3/uL (150-450); RED BLOOD COUNT 5.38 10^6/uL (4.00-5.40); WHITE BLOOD COUNT 6.7 10^3/uL (4.0-10.0)
[2019-09-12 18:57] LABS: ALBUMIN 3.3 GM/DL (3.2-5.2); BLOOD UREA NITROGEN 29 MG/DL (7-18); CALCIUM LEVEL 9.7 MG/DL (8.5-10.1); CARBON DIOXIDE LEVEL 30 MEQ/L (21-32); CHLORIDE LEVEL 101 MEQ/L (98-107); CREATININE FOR GFR 0.89 MG/DL (0.55-1.30); GLOMERULAR FILTRATION RATE > 60.0 (>51); GLUCOSE, FASTING 122 MG/DL (70-100); MAGNESIUM LEVEL 2.1 MG/DL (1.8-2.4); PHOSPHORUS LEVEL 3.1 MG/DL (2.5-4.9); POTASSIUM SERUM 4.3 MEQ/L (3.5-5.1); SODIUM LEVEL 138 MEQ/L (136-145)
[2019-09-13 11:21] LABS: PTH INTACT 48.9 PG/ML (18.5-88.0)
== END ==
LOC: M WUC 12:23
PROVIDERS: ATTEND Nurse Practitioner Family
DX: N18.3 Chronic kidney disease, stage 3 (moderate) (principal); D63.1 Anemia in chronic kidney disease; N25.81 Secondary hyperparathyroidism of renal origin; E83.42 Hypomagnesemia

== ENCOUNTER → 2019-10-21 | Outpatient (CLI) | payer MEDICARE, MEDICAID ==
[~2019-10-21] MED LIST changes: -LISI-672 PO; +LISI30TA4 PO; +REXU1TAB PO
[2019-10-21 14:13] LABS: APPEARANCE, URINE HAZY (CLEAR); BACTERIA, URINE AUTO NEGATIVE (NEGATIVE); BILIRUBIN, URINE AUTO NEGATIVE (NEGATIVE); BLOOD, URINE BLOOD NEGATIVE (NEGATIVE); COLOR, URINE YELLOW (YELLOW); GLUCOSE, URINE (UA) AUTO NEGATIVE (NEGATIVE); KETONE, URINE AUTO NEGATIVE (NEGATIVE); LEUKOCYTE ESTERASE, URINE AUTO NEGATIVE (NEGATIVE); NITRITE, URINE AUTO NEGATIVE (NEGATIVE); PROTEIN, URINE AUTO NEGATIVE (NEGATIVE); RBC, URINE AUTO 0 /HPF (0-3); SPECIFIC GRAVITY URINE AUTO 1.023 (1.002-1.035); SQUAMOUS EPITHELIAL CELL UR AU 6 /HPF (0-6); UROBILINOGEN, URINE AUTO 0.2 mg/dL (0.0-2.0); WBC, URINE AUTO 2 /HPF (0-3)
[2019-10-21 14:17] LABS: BASO % 0.4 % (0.0-1.0); EOS # 0.4 10^3/uL (0.0-0.5); EOS % 4.9 % (0.0-3.0); HEMATOCRIT 46.5 % (36.0-47.0); HEMOGLOBIN 14.8 g/dl (12.0-15.5); LYMPH # 1.9 10^3/uL (1.5-5.0); MEAN CORPUSCULAR HEMOGLOBIN 29.5 pg (27.0-33.0); MEAN CORPUSCULAR HGB CONC 31.8 g/dl (32.0-36.5); MEAN CORPUSCULAR VOLUME 92.6 fl (80.0-96.0); MONO # 0.7 10^3/uL (0.0-0.8); MONO % 9.2 % (0.0-5.0); NEUTROPHILS # 4.3 10^3/uL (1.5-8.5); NEUTROPHILS % 58.9 % (36.0-66.0); PLATELET COUNT, AUTOMATED 251 10^3/uL (150-450); RED BLOOD COUNT 5.02 10^6/uL (4.00-5.40); WHITE BLOOD COUNT 7.2 10^3/uL (4.0-10.0)
[2019-10-21 14:45] LABS: ALBUMIN 3.3 GM/DL (3.2-5.2); ALT/SGPT 58 U/L (12-78); BILIRUBIN,TOTAL 0.4 MG/DL (0.2-1.0); BLOOD UREA NITROGEN 25 MG/DL (7-18); CALCIUM LEVEL 9.1 MG/DL (8.5-10.1); CARBON DIOXIDE LEVEL 31 MEQ/L (21-32); CHLORIDE LEVEL 106 MEQ/L (98-107); CREATININE FOR GFR 0.81 MG/DL (0.55-1.30); GLOMERULAR FILTRATION RATE > 60.0 (>51); GLUCOSE, FASTING 115 MG/DL (70-100); POTASSIUM SERUM 3.9 MEQ/L (3.5-5.1); SODIUM LEVEL 141 MEQ/L (136-145); TOTAL PROTEIN 6.7 GM/DL (6.4-8.2)
== END ==
LOC: M LAB 13:32
PROVIDERS: ATTEND Internal Medicine Medical Oncology
DX: R71.8 Other abnormality of red blood cells (principal)

== ENCOUNTER → 2019-10-23 | Outpatient (CLI) | payer MEDICARE, MEDICAID ==
--- NOTE | 2019-10-23 15:15 | REP ---
REASON: Peripheral vascular disease present. RIGHT SIDE: Ankle brachial index is 1.08. CLINICAL ACCOUNT SPECIALIST 97.2 cm/s Triphasic Profunda 54.0 cm/s Triphasic SFA proximal 84.6 cm/s Triphasic SFA mid 88.2 cm/s Triphasic SFA distal 55.3 cm/s Triphasic Popliteal 49.6 cm/s Triphasic RADHIKA proximal 45.7 cm/s Triphasic Tibioperoneal trunk 59.5 cm/s Triphasic SECTION HAND proximal 56.4 cm/s Triphasic SECTION HAND distal 70.3 cm/s Triphasic RADHIKA distal 73.7 cm/s Triphasic LEFT SIDE: Ankle brachial index is 1.0. CLINICAL ACCOUNT SPECIALIST 84.7 cm/s Triphasic Profunda 90.6 cm/s Triphasic SFA proximal 104.8 cm/s Triphasic SFA mid 70.1cm/s Triphasic SFA distal 75.2 cm/s Triphasic Popliteal 35.2 cm/s Triphasic RADHIKA proximal 34.0 cm/s Triphasic Tibioperoneal trunk 50.4 cm/s Triphasic SECTION HAND proximal 29.8 cm/s Triphasic SECTION HAND distal 45.5 cm/s Triphasic RADHIKA distal 61.1 cm/s Triphasic Note was made of a bilateral Villarrael's cyst on the right measuring 4.3 x 1.5 x 3.7 cm and on the left measuring 4.9 x 1.3 x 2.9 cm. Electronically Signed by Jose Graff DO 10/23/2019 03:24 P
== END ==
LOC: M RAD 09:42
PROVIDERS: ATTEND Physician Assistant
DX: I70.213 Atherosclerosis of native arteries of extremities with intermittent claudication, bilateral legs (principal)

== ENCOUNTER → 2020-02-13 | Outpatient (CLI) | payer MEDICARE, MEDICAID ==
--- NOTE | 2020-02-20 10:21 | REP ---
BILATERAL LOWER EXTREMITY DOPPLER CLINICAL: Bilateral lower extremity edema. TECHNIQUE: Real-time barros scale and color Doppler evaluation of the bilateral lower extremities using linear high frequency transducer. FINDINGS: Ultrasound examination of the bilateral lower extremity deep venous structures from the common femoral vein to the popliteal vein demonstrate normal compressibility, flow, and wave patterns in response to respiration and augmentation without evidence for deep vein thrombosis. Of note, there is mild reflux through the right common femoral vein with the bed tilted for the duration of 1.7 seconds. No other reflux was noted throughout the bilateral lower extremity deep or superficial systems. The right lower extremity demonstrates a complex Bakers cyst measuring 3.3 x 1.1 x 2.2 cm. The left lower extremity demonstrates a complex Bakers cyst measuring 5.3 x 1.7 x 3.1 cm. IMPRESSION: * No evidence for deep vein thrombosis. * Bilateral complex Bakers cyst. * No significant reflux noted bilaterally. Only very minimal reflux through the right common femoral vein with the bed tilted. MTDD
== END ==
LOC: M RAD 12:28
PROVIDERS: ATTEND Physician Assistant
DX: R60.9 Edema, unspecified (principal); M71.21 Synovial cyst of popliteal space [Baker], right knee; M71.22 Synovial cyst of popliteal space [Baker], left knee

== ENCOUNTER → 2020-05-31 | Outpatient (CLI) | payer SELFPAY | LOC: M LABSMTC 08:50 | PROVIDERS: ATTEND Pediatrics | DX: Z20.822 Contact with and (suspected) exposure to COVID-19 (principal) ==

== ENCOUNTER → 2020-10-29 | Outpatient (CLI) | payer MEDICARE, MEDICAID ==
[~2020-10-29] MED LIST changes: +HYDR-3490 PO; -HYDR25TAB PO; -LISI-542 PO; +LISI-898 PO; +LISI10TA22 PO; -LISI10TA4 PO; -MAG400TA PO; +MAGN400T35 PO; +MAXZTAB PO; +ZOLO100T PO
[2020-10-29 12:38] LABS: BASO % 0.5 % (0.0-1.0); EOS # 0.2 10^3/uL (0.0-0.5); EOS % 3.3 % (0.0-3.0); HEMATOCRIT 49.6 % (36.0-47.0); HEMOGLOBIN 15.9 g/dl (12.0-15.5); LYMPH # 1.5 10^3/uL (1.5-5.0); LYMPH % 24.1 % (24.0-44.0); MEAN CORPUSCULAR HEMOGLOBIN 31.4 pg (27.0-33.0); MEAN CORPUSCULAR HGB CONC 32.1 g/dl (32.0-36.5); MEAN CORPUSCULAR VOLUME 97.8 fl (80.0-96.0); MONO # 0.6 10^3/uL (0.0-0.8); MONO % 10.6 % (2.0-8.0); NEUTROPHILS # 3.7 10^3/uL (1.5-8.5); NEUTROPHILS % 61.2 % (36.0-66.0); PLATELET COUNT, AUTOMATED 223 10^3/uL (150-450); RED BLOOD COUNT 5.07 10^6/uL (4.00-5.40); WHITE BLOOD COUNT 6.1 10^3/uL (4.0-10.0)
== END ==
LOC: M LAB 11:52
PROVIDERS: ATTEND Internal Medicine Hematology & Oncology
DX: D75.1 Secondary polycythemia (principal)

== ENCOUNTER → 2020-10-29 | Outpatient (CLI) | payer MEDICARE, MEDICAID ==
[~2020-10-29] MED LIST changes: +OXCA300T14; +WELL100T2 PO
[2020-10-29 12:38] LABS: HEMATOCRIT 50.3 % (36.0-47.0); MEAN CORPUSCULAR HEMOGLOBIN 31.4 pg (27.0-33.0); MEAN CORPUSCULAR HGB CONC 31.8 g/dl (32.0-36.5); MEAN CORPUSCULAR VOLUME 98.6 fl (80.0-96.0); PLATELET COUNT, AUTOMATED 229 10^3/uL (150-450); WHITE BLOOD COUNT 5.9 10^3/uL (4.0-10.0)
[2020-10-29 15:39] LABS: ALBUMIN 3.4 GM/DL (3.2-5.2); ALT/SGPT 58 U/L (12-78); BILIRUBIN,TOTAL 0.6 MG/DL (0.2-1.0); BLOOD UREA NITROGEN 23 MG/DL (7-18); CALCIUM LEVEL 9.3 MG/DL (8.5-10.1); CARBON DIOXIDE LEVEL 31 MEQ/L (21-32); CHLORIDE LEVEL 101 MEQ/L (98-107); CHOLESTEROL LEVEL 216 MG/DL (<200); CREATININE FOR GFR 0.83 MG/DL (0.55-1.30); GLOMERULAR FILTRATION RATE > 60.0 (>51); GLUCOSE, FASTING 128 MG/DL (70-100); HDL CHOLESTEROL 54 MG/DL (>40); LDL CHOLESTEROL 129 MG/DL (<100); NON-HDL-C 162 MG/DL; POTASSIUM SERUM 4.5 MEQ/L (3.5-5.1); SODIUM LEVEL 139 MEQ/L (136-145); TOTAL 25(OH) VITAMIN D 19.8 NG/ML (30.0-100.0); TOTAL PROTEIN 7.2 GM/DL (6.4-8.2); TRIGLYCERIDES LEVEL 165 MG/DL (<150)
[2020-10-29 16:20] LABS: HEMOGLOBIN A1c 7.6 %
--- NOTE | 2020-10-30 03:49 | REP ---
INDICATION: HTN / LABS 1ST / EKG 2ND COMPARISON: 02/19/2018 TECHNIQUE: PA and lateral. FINDINGS: The mediastinum and cardiac silhouette are normal. The lung juares demonstrate chronic stable changes without acute consolidation, effusion, or pneumothorax. The skeletal structures are intact and normal. IMPRESSION: No acute cardiopulmonary process. <Electronically signed by Renzo Maddox > 10/30/20 [id number]
--- NOTE | 2020-10-30 10:20 | ECGEPIP ---
[facility] Test Date: 2020-10-29 Pat Name: NO SIERRA Department: Room: - Gender: Female Surgical Assist: JOHN : 1960 Requested By: Gallito Hill Order Number: [id number] Reading MD: Von Matthews Measurements Intervals [place] Rate: 79 P: 69 GA: 162 QRS: 18 QRSD: 80 T: 71 QT: 394 QTc: 451 Interpretive Statements Sinus rhythm Similar to 02/15/19 Electronically Signed on 10-30-2020 10:20:26 EDT by Von Matthews
== END ==
LOC: M LAB 11:55
PROVIDERS: ATTEND Family Medicine
DX: I10 Essential (primary) hypertension (principal); E11.9 Type 2 diabetes mellitus without complications; R53.83 Other fatigue; D75.1 Secondary polycythemia; Z79.899 Other long term (current) drug therapy

== ENCOUNTER → 2020-12-23 | Outpatient (REF) | payer MEDICARE, MEDICAID | LOC: M LAB REF 13:07 | PROVIDERS: ATTEND Internal Medicine Nephrology | DX: E83.42 Hypomagnesemia (principal); N18.31 Chronic kidney disease, stage 3a ==

== ENCOUNTER → 2021-02-01 | Outpatient (CLI) | payer MEDICAID, MEDICARE ==
--- NOTE | 2021-02-01 12:44 | REPVR ---
PROCEDURE INFORMATION: Exam: MR Lumbar Spine Without Contrast Exam date and time: 02/01/2021 10:59 AM Age: 60 years old Clinical indication: Low back pain; Additional info: Spondylosis TECHNIQUE: Imaging protocol: Multiplanar magnetic resonance images of the lumbar spine without intravenous contrast. COMPARISON: CR SPINE LS W/BENDING 05/25/2015 9:01 AM FINDINGS: Vertebrae: Vertebral body heights normal. There is prominent disc desiccation and disc height loss with endplate degenerative marrow changes at L1-L2 and L5-S1. There is less marked disc desiccation and disc height loss with endplate degenerative marrow changes at L2-L3 and L4-L5.. Spinal cord: Conus terminates at L1 and appears normal in signal intensity without intrinsic or extrinsic lesion. T12-L1: Sagittal images only. There is a small disc bulge versus left paracentral protrusion without evidence of spinal stenosis or neural foraminal narrowing. L1-L2: There is generalized disc bulge and central protrusion extending below disc space level, which mildly flattens ventral thecal sac. There is facet degeneration. There is no significant overall spinal stenosis. There is no significant right and mild medial left neural foraminal narrowing. L2-L3: There is generalized disc bulge. There is facet degeneration. There is no significant spinal stenosis. There is no significant neural foraminal narrowing. L3-L4: There is generalized disc bulge. There is facet degeneration with bilateral facet joint fluid. There is no significant spinal stenosis. There is no significant neural foraminal narrowing. L4-L5: There is generalized disc bulge. There is facet degeneration with facet joint fluid. There is no significant spinal stenosis. There is no significant neural foraminal narrowing. There is a small in superior aspect of L4 spinous process L5-S1: There is generalized disc bulge and shallow central disc protrusion slightly asymmetric to right. This causes mild narrowing of superior aspect of S1 subarticular recess. There is facet degeneration. There is no significant spinal stenosis. There is [id number] bilateral neural foraminal narrowing. Soft tissues: Unremarkable. IMPRESSION: Degenerative changes as detailed above. Spinal canal appears adequate. There is neural foraminal narrowing greatest at L5-S1. Electronically signed by: Dahiana Rodriguez On 02/01/2021 12:44:24 PM
== END ==
LOC: M PLAIMG 09:44
PROVIDERS: ATTEND Pain Medicine Interventional Pain Medicine
DX: M47.817 Spondylosis without myelopathy or radiculopathy, lumbosacral region (principal)

== ENCOUNTER → 2021-02-09 | Outpatient (CLI) | payer MEDICARE, MEDICAID ==
[2021-02-09 08:34] LABS: ABG BASE EXCESS 3.4 (-2.0-2.0); ABG HCO3 30.1 MEQ/L (22.0-26.0); ABG O2 SATURATION 93.2 % (95.0-99.0); ABG PARTIAL PRESSURE CO2 53.2 mmHg (35.0-45.0); ABG PARTIAL PRESSURE O2 69.6 mmHg (75.0-100.0); ABG STANDARD HCO3 27.3 MEQ/L (22.0-26.0); ABG TOTAL CO2 31.7 MEQ/L (22.0-29.0)
--- NOTE | 2021-02-09 08:53 | PFTRPT ---
Height: 62.00 Inches Weight: 315.00 Lbs BSA: 2.32 Diagnosis: R94.2 DATE: 02/09/2021 ORDERING PHYSICIAN: JAYJAY Bolanos Pre and post bronchodilator studies have excellent technical quality. Forced vital capacity is reduced. FEV1 is generally in proportion. Obstructive index is therefore normal. Expiratory limit of the flow-volume loop does suggest significant flow rate limitation. No significant bronchodilator response is identified. Total lung capacity is normal. Residual volume is consistent with very significant underlying air trapping. Diffusing capacity is normal. Hemoglobin is acceptable at 15. Airway resistance and conductance are normal. IMPRESSION: Suspect significant underlying air trapping. Please correlate clinically. MTDD
== END ==
LOC: M CARPUL 08:08
PROVIDERS: ATTEND Physician Assistant
DX: J45.20 Mild intermittent asthma, uncomplicated (principal)

== ENCOUNTER → 2021-02-26 | Outpatient (REF) | payer MEDICARE, MEDICAID | LOC: M LAB REF 16:43 | PROVIDERS: ATTEND Internal Medicine Nephrology | DX: R35.0 Frequency of micturition (principal) ==

== ENCOUNTER → 2021-03-05 | Outpatient (CLI) | payer MEDICARE, MEDICAID ==
--- NOTE | 2021-03-06 12:39 | ECHO ---
ECHOCARDIOGRAM DATE OF PROCEDURE: 03/05/2021 Age: Gender: Height: Weight: Patient location: Outpatient. REFERRING PHYSICIAN: Memo Aguilera RPA INDICATION: 2D MEASUREMENTS: IVS 1.5 cm LVPW 1.5 cm LV 4.1 cm Aortic root 3.3 cm LA 4.5 cm IVC 1.9 cm DOPPLER MEASUREMENTS: Peak velocity across the aortic valve 1.4 m/s Peak velocity across the LVOT 1.0 m/s Mitral E 1.96 Mitral A 1.0 with a ratio of 0.94. 2D COMMENTS: 1. Normal left ventricular size with moderately increased left ventricular wall thickness. The left ventricular systolic function is normal, estimated at 60%-65%. 2. Mildly enlarged left atrium. The right atrium and the right ventricle appear to be mildly enlarged in limited views. 3. The atrial septum appeared to be normal without evidence of defect of shunt. 4. Normal aortic root. 5. A small pericardial effusion was noted. No evidence of cardiac tamponade. 6. Normal aortic valve. Mildly calcified mitral annulus with normal anterior mitral valve leaflet motion. Normal tricuspid valve. The pulmonic valve and ___ pulmonary artery branches were not well visualized. 7. The inferior vena cava appeared to be mildly enlarged. Central venous pressure is probably elevated. DOPPLER: No significant valvular abnormalities detected. Abnormal relaxation pattern was noted across the mitral valve leaflets as well as the mitral valve annulus, consistent with features of grade 1 left ventricular systolic dysfunction. IMPRESSION: 1. Normal global left ventricular systolic function with probably moderate concentric left ventricular hypertrophy. There are some features of grade 1 left ventricular diastolic dysfunction manifested by abnormal relaxation. 2. Mitral annulus calcification without evidence of mitral regurgitation or stenosis. 3. A small pericardial effusion was noted. No evidence of cardiac tamponade. 4. The left atrium appeared to be mildly enlarged at 4.5 cm. 5. There were some features of elevated central venous pressure. The inferior vena cava appeared to be mildly enlarged. 6. No significant valvular abnormalities detected.
== END ==
LOC: M CARPUL 09:49
PROVIDERS: ATTEND Physician Assistant
DX: G47.33 Obstructive sleep apnea (adult) (pediatric) (principal)

== ENCOUNTER → 2021-07-30 | Outpatient (CLI) | payer MEDICARE, MEDICAID ==
[~2021-07-30] MED LIST changes: -LISI-898 PO; +LISI5TAB11 PO
== END ==
LOC: M RAD 11:04
PROVIDERS: ATTEND Physician Assistant
DX: M51.36 Other intervertebral disc degeneration, lumbar region (principal); E78.00 Pure hypercholesterolemia, unspecified; E03.9 Hypothyroidism, unspecified; R53.81 Other malaise; I10 Essential (primary) hypertension; Z79.899 Other long term (current) drug therapy

== ENCOUNTER → 2021-07-30 | Outpatient (CLI) | payer MEDICARE, MEDICAID ==
[2021-07-30 14:23] LABS: HEMATOCRIT 52.6 % (36.0-47.0); MEAN CORPUSCULAR HEMOGLOBIN 31.5 pg (27.0-33.0); MEAN CORPUSCULAR HGB CONC 32.3 g/dl (32.0-36.5); MEAN CORPUSCULAR VOLUME 97.6 fl (80.0-96.0); PLATELET COUNT, AUTOMATED 215 10^3/uL (150-450); RED BLOOD COUNT 5.39 10^6/uL (4.00-5.40); WHITE BLOOD COUNT 9.5 10^3/uL (4.0-10.0)
[2021-07-30 14:59] LABS: ALBUMIN 3.5 GM/DL (3.2-5.2); ALT/SGPT 65 U/L (12-78); BILIRUBIN,TOTAL 0.9 MG/DL (0.2-1.0); BLOOD UREA NITROGEN 25 MG/DL (7-18); CALCIUM LEVEL 8.9 MG/DL (8.5-10.1); CARBON DIOXIDE LEVEL 33 MEQ/L (21-32); CHLORIDE LEVEL 98 MEQ/L (98-107); CHOLESTEROL LEVEL 214 MG/DL (<200); CHOLESTEROL RISK RATIO 2.301 (<5); CREATININE FOR GFR 0.87 MG/DL (0.55-1.30); GLOMERULAR FILTRATION RATE > 60.0 (>51); GLUCOSE, FASTING 107 MG/DL (70-100); HDL CHOLESTEROL 93 MG/DL (>40); LDL CHOLESTEROL 93 MG/DL (<100); NON-HDL-C 121 MG/DL; POTASSIUM SERUM 4.6 MEQ/L (3.5-5.1); SODIUM LEVEL 136 MEQ/L (136-145); TOTAL PROTEIN 7.2 GM/DL (6.4-8.2); TRIGLYCERIDES LEVEL 138 MG/DL (<150)
[2021-07-30 15:06] LABS: HEMOGLOBIN A1c 7.4 %
== END ==
LOC: M LAB 11:10
PROVIDERS: ATTEND Family Medicine
DX: E03.9 Hypothyroidism, unspecified (principal); R53.81 Other malaise; I10 Essential (primary) hypertension; Z79.899 Other long term (current) drug therapy

== ENCOUNTER → 2021-08-27 | Outpatient (CLI) | payer MEDICARE, MEDICAID ==
[~2021-08-27] MED LIST changes: +CETI-24 PO; +ERGO500029 PO; +GLIP5TAB20 PO; +INCR1INH INH; +OXCA150T21 PO; +TIZA10TA PO; +TRIA37.53 PO
== END ==
LOC: M LABSMTC 11:39
PROVIDERS: ATTEND Anesthesiology
DX: Z01.812 Encounter for preprocedural laboratory examination (principal); Z20.822 Contact with and (suspected) exposure to COVID-19

== ENCOUNTER → 2021-09-08 | Outpatient (CLI) | payer MEDICARE, MEDICAID ==
[2021-09-08 08:59] LABS: HEMATOCRIT 51.8 % (36.0-47.0); HEMOGLOBIN 16.7 g/dl (12.0-15.5); MEAN CORPUSCULAR HEMOGLOBIN 31.6 pg (27.0-33.0); MEAN CORPUSCULAR HGB CONC 32.2 g/dl (32.0-36.5); MEAN CORPUSCULAR VOLUME 98.1 fl (80.0-96.0); PLATELET COUNT, AUTOMATED 220 10^3/uL (150-450); RED BLOOD COUNT 5.28 10^6/uL (4.00-5.40); WHITE BLOOD COUNT 5.9 10^3/uL (4.0-10.0)
[2021-09-08 09:09] LABS: INR 0.97; PROTHROMBIN TIME 13.3 SECONDS (12.7-14.5)
[2021-09-08 09:18] LABS: HEMOGLOBIN A1c 7.3 %
[2021-09-08 09:41] LABS: ALBUMIN 3.5 GM/DL (3.2-5.2); ALT/SGPT 39 U/L (12-78); BILIRUBIN,TOTAL 0.6 MG/DL (0.2-1.0); BLOOD UREA NITROGEN 20 MG/DL (7-18); CALCIUM LEVEL 9.5 MG/DL (8.8-10.2); CARBON DIOXIDE LEVEL 31 MEQ/L (21-32); CHLORIDE LEVEL 102 MEQ/L (98-107); CHOLESTEROL LEVEL 231 MG/DL (<200); CHOLESTEROL RISK RATIO 4.529 (<5); CREATININE FOR GFR 0.79 MG/DL (0.55-1.30); GLOMERULAR FILTRATION RATE > 60.0 (>45); GLUCOSE, FASTING 174 MG/DL (70-100); HDL CHOLESTEROL 51 MG/DL (>40); LDL CHOLESTEROL 130 MG/DL (<100); NON-HDL-C 180 MG/DL; POTASSIUM SERUM 4.3 MEQ/L (3.5-5.1); SODIUM LEVEL 140 MEQ/L (136-145); TRIGLYCERIDES LEVEL 252 MG/DL (<150)
== END ==
LOC: M RAD 08:06
PROVIDERS: ATTEND Family Medicine
DX: I10 Essential (primary) hypertension (principal); Z79.01 Long term (current) use of anticoagulants

== ENCOUNTER → 2021-10-09 | Outpatient (CLI) | payer MEDICARE, MEDICAID | LOC: M LABSMTC 11:58 | PROVIDERS: ATTEND Anesthesiology | DX: Z01.812 Encounter for preprocedural laboratory examination (principal); Z20.822 Contact with and (suspected) exposure to COVID-19 ==

== ENCOUNTER 2021-10-14 08:53 | Day surgery (SDC) | payer MEDICARE, MEDICAID ==
[~2021-10-14] VITALS: Ht 157.5 cm; Wt 136.5 kg
[~2021-10-14 08:53] MED LIST changes: +ALBU2.5V10 INH; -ALBU83IN INH; -TRIA37.53 PO; +TRIA37.577 PO
[2021-10-14] MEDS ORDERED: INSULIN LISPRO (NovoLOG) PER UNIT SC PRN ×2 (09:15→11:50)
[2021-10-14] MEDS ORDERED: LR 1,000 ML IV SCH ×2 (09:15→11:50)
[2021-10-14] MEDS ORDERED: ALBUTEROL SULFATE 2.5 MG/0.5 ML INH NEB SOLN INH STA (10:24)
[2021-10-14] MEDS ORDERED: dexameTHASONE 4 MG/ML 1ML VIAL (J1100 PER 1MG) As Ordered ONE (11:13)
[2021-10-14] MEDS ORDERED: ROCURONIUM BROMIDE 50 MG/5 ML VIAL As Ordered ONE (11:13)
[2021-10-14] MEDS ORDERED: SUGAMMADEX SODIUM 500 MG/5 ML VIAL (BRIDION) As Ordered ONE (11:13)
[2021-10-14] MEDS ORDERED: LIDOCAINE 2% 100MG/5ML SDV (FOR ANES.) As Ordered ONE (11:13)
[2021-10-14] MEDS ORDERED: fentaNYL 100 MCG/2 ML INJECTION As Ordered ONE (11:13)
[2021-10-14] MEDS ORDERED: propofoL 200 MG/20 ML VIAL As Ordered ONE (11:13)
[2021-10-14] MEDS ORDERED: MIDAZOLAM INJ 2MG/2ML VIAL (J2250 PER 1MG) As Ordered ONE (11:13)
[2021-10-14] MEDS ORDERED: ONDANSETRON 4MG/2ML VIAL As Ordered ONE (11:13)
[2021-10-14] MEDS ORDERED: PHENYLephrine 500MCG 5ML (100MCG/ML) SYRINGE As Ordered ONE (11:14)
[2021-10-14] MEDS ORDERED: TRIAMCINOLONE ACETONIDE SUSP 40 MG/ML VIAL (J3301) As Ordered ONE (11:31)
[2021-10-14] MEDS ORDERED: HYDROMORPHONE HCL 0.5 MG/ 0.5 ML SYRINGE (J1170 PER 1) IV PRN (11:50)
[2021-10-14] MEDS ORDERED: oxyCODONE 5MG TAB PO PRN (11:50)
[2021-10-14] MEDS ORDERED: fentaNYL 100 MCG/2 ML INJECTION IV PRN (11:50)
[2021-10-14] MEDS ORDERED: ONDANSETRON 4MG/2ML VIAL IV PRN (11:50)
[2021-10-14] MEDS ORDERED: ALBUTEROL SULFATE 2.5 MG/0.5 ML INH NEB SOLN INH ONE (11:50)
[2021-10-14] MEDS ORDERED: ALBUTEROL 6.7GM INHALER **FOR ANES. CART/OMNICELL ONLY As Ordered ONE (11:55)
[2021-10-14 12:55] VITALS: BP 158/72
== END 2021-10-14 13:23 | disposition home or self-care (01) ==
LOC: M SDC 08:53
PROVIDERS: ATTEND Otolaryngology
DX: K11.20 Sialoadenitis, unspecified (principal); I12.9 Hypertensive chronic kidney disease with stage 1 through stage 4 chronic kidney disease, or unspecified chronic kidney disease; J44.9 Chronic obstructive pulmonary disease, unspecified; J45.909 Unspecified asthma, uncomplicated; E78.00 Pure hypercholesterolemia, unspecified; N18.4 Chronic kidney disease, stage 4 (severe); F32.A Depression, unspecified; F41.9 Anxiety disorder, unspecified; E66.9 Obesity, unspecified; Z91.040 Latex allergy status; Z88.6 Allergy status to analgesic agent; Z88.8 Allergy status to other drugs, medicaments and biological substances
CPT/HCPCS: 42650; J1100; J2250; J2370; J2405; J3010; J3301

== ENCOUNTER → 2022-06-15 | Outpatient (CLI) | payer MEDICARE, MEDICAID ==
[~2022-06-15] MED LIST changes: -DOXY-350 PO; +DOXY-444 PO
== END ==
LOC: M WHC 13:12
PROVIDERS: ATTEND Family Medicine
DX: Z12.31 Encounter for screening mammogram for malignant neoplasm of breast (principal)

== ENCOUNTER → 2023-04-25 | Outpatient (CLI) | payer MEDICARE, MEDICAID ==
[~2023-04-25] MED LIST changes: +MONT-5 PO; -SING10TA32 PO
== END ==
LOC: M RAD 07:59
PROVIDERS: ATTEND Physician Assistant Medical
DX: R10.12 Left upper quadrant pain (principal); R11.0 Nausea; R68.81 Early satiety
CPT/HCPCS: 78264; A9541

== ENCOUNTER → 2023-04-28 | Outpatient (REF) | payer MEDICARE, MEDICAID ==
[2023-04-28 14:53] LABS: LIPASE 66 U/L (12-53)
[2023-04-28 14:55] LABS: ALBUMIN 3.4 G/DL (3.2-5.2); ALKALINE PHOSPHATASE 124 U/L (46-116); ALT/SGPT 35 U/L (7.0-40); AMYLASE 85 U/L (30-118); AST/SGOT 26 U/L (<34); BILIRUBIN,TOTAL 0.3 MG/DL (0.3-1.2); BLOOD UREA NITROGEN 28 MG/DL (9-23); CARBON DIOXIDE LEVEL 31 MMOL/L (20-31); CHLORIDE LEVEL 104 MMOL/L (98-107); CREATININE FOR GFR 0.68 MG/DL (0.55-1.30); GLOMERULAR FILTRATION RATE > 60.0 (>45); GLUCOSE, FASTING 129 MG/DL (74-106); POTASSIUM SERUM 4.2 MMOL/L (3.5-5.1); SODIUM LEVEL 141 MMOL/L (136-145); TOTAL PROTEIN 6.6 G/DL (5.7-8.2)
[2023-04-28 15:17] LABS: BASO % 0.6 % (0.0-1.0); EOS # 0.2 10^3/uL (0.0-0.5); EOS % 3.3 % (0.0-3.0); HEMATOCRIT 49.5 % (36.0-47.0); HEMOGLOBIN 15.7 g/dl (12.0-15.5); LYMPH % 39.6 % (24.0-44.0); MEAN CORPUSCULAR HEMOGLOBIN 30.7 pg (27.0-33.0); MEAN CORPUSCULAR HGB CONC 31.7 g/dl (32.0-36.5); MEAN CORPUSCULAR VOLUME 96.9 fl (80.0-96.0); MONO # 0.5 10^3/uL (0.0-0.8); MONO % 8.9 % (2.0-8.0); NEUTROPHILS # 2.4 10^3/uL (1.5-8.5); NEUTROPHILS % 46.8 % (36.0-66.0); PLATELET COUNT, AUTOMATED 236 10^3/uL (150-450); RED BLOOD COUNT 5.11 10^6/uL (4.00-5.40); WHITE BLOOD COUNT 5.2 10^3/uL (4.0-10.0)
== END ==
LOC: M WUC 12:11
PROVIDERS: ATTEND Physician Assistant Medical
DX: R10.12 Left upper quadrant pain (principal)

== ENCOUNTER 2023-06-23 07:09 | Day surgery (SDC) | payer MEDICARE, MEDICAID ==
[~2023-06-23] VITALS: Ht 157.5 cm; Wt 128.6 kg
[~2023-06-23 07:09] MED LIST changes: +LIDOCAINE 2% 100MG/5ML SDV (FOR ANES.) As Ordered ONE; +PROA1AER2 IN; +SEMA0.257 SQ; +SIMETHICONE 40MG/0.6ML DROPS 30ML As Ordered ONE; +fentaNYL 100 MCG/2 ML INJECTION As Ordered ONE; +propofoL 200 MG/20 ML VIAL As Ordered ONE
[2023-06-23] MEDS: NS 1,000 ML IV ONE (07:30)
[2023-06-23] MEDS ORDERED: ONDANSETRON 4MG 2ML VIAL As Ordered ONE (07:41)
[2023-06-23] MEDS ORDERED: MIDAZOLAM INJ 2MG/2ML VIAL As Ordered ONE (07:48)
[2023-06-23 08:41] VITALS: BP 145/72; O2SAT 96
== END 2023-06-23 08:43 | disposition home or self-care (01) ==
LOC: M OPP 07:09
PROVIDERS: ATTEND Internal Medicine Gastroenterology
DX: Z86.010 Personal history of colon polyps (principal); D12.6 Benign neoplasm of colon, unspecified; K63.5 Polyp of colon; K64.8 Other hemorrhoids; K57.30 Diverticulosis of large intestine without perforation or abscess without bleeding; R10.13 Epigastric pain; R10.12 Left upper quadrant pain; G47.30 Sleep apnea, unspecified; E11.9 Type 2 diabetes mellitus without complications; Z79.51 Long term (current) use of inhaled steroids; Z79.52 Long term (current) use of systemic steroids; Z79.891 Long term (current) use of opiate analgesic; Z88.1 Allergy status to other antibiotic agents; Z88.6 Allergy status to analgesic agent; Z88.8 Allergy status to other drugs, medicaments and biological substances; Z91.040 Latex allergy status
CPT/HCPCS: 43235; 45385; 88305; J2250; J2405; J3010

== ENCOUNTER → 2023-07-03 | Outpatient (CLI) | payer MEDICARE, MEDICAID ==
[~2023-07-03] MED LIST changes: +GLUCAGON INJ 1MG VIAL As Ordered ONE; +ISOVUE-370 76% 100ML VIAL As Ordered ONE; -LIDOCAINE 2% 100MG/5ML SDV (FOR ANES.) As Ordered ONE; +NEULUMEX 0.1% SUSPENSION 450ML BOTTLE (FORMERLY VOLUMEN) As Ordered ONE; -SIMETHICONE 40MG/0.6ML DROPS 30ML As Ordered ONE; -fentaNYL 100 MCG/2 ML INJECTION As Ordered ONE; -propofoL 200 MG/20 ML VIAL As Ordered ONE
== END ==
LOC: M RAD 13:21
PROVIDERS: ATTEND Physician Assistant Medical
DX: R63.4 Abnormal weight loss (principal); R10.12 Left upper quadrant pain; R68.81 Early satiety
CPT/HCPCS: 74177; J1610; Q9967

== ENCOUNTER → 2023-07-13 | Outpatient (CLI) | payer MEDICARE, MEDICAID ==
[~2023-07-13] MED LIST changes: -GLUCAGON INJ 1MG VIAL As Ordered ONE; -ISOVUE-370 76% 100ML VIAL As Ordered ONE; -NEULUMEX 0.1% SUSPENSION 450ML BOTTLE (FORMERLY VOLUMEN) As Ordered ONE
== END ==
LOC: M WUC 13:55
PROVIDERS: ATTEND Physician Assistant Medical
DX: R74.8 Abnormal levels of other serum enzymes (principal)

== ENCOUNTER 2023-08-02 07:37 | Day surgery (SDC) | payer OTHER, MEDICAID ==
[~2023-08-02] VITALS: Ht 157.5 cm; Wt 127.5 kg
[~2023-08-02 07:37] MED LIST changes: +MIDAZOLAM INJ 2MG/2ML VIAL As Ordered ONE; +PHENYLEPHRINE 10% OPHTH SOL 5ML OD PRN; +UNRESOLVED CLARIFICATION ENTRY XX SCH; +fentaNYL 100 MCG/2 ML INJECTION As Ordered ONE
[2023-08-02] MEDS: LIDOCAINE 3.5 % 1ML OPHTH TOPICAL GEL OU ONE (08:38)
[2023-08-02] MEDS: OFLOXACIN 0.3 % (OCUFLOX) OPTH SOL 5ML OD ONE (08:38)
[2023-08-02] MEDS: ATROPINE SULFATE 1% OPHTH SOLN 2ML BTL OD SCH (08:38)
[2023-08-02] MEDS: PHENYLEPHRINE 2.5% OPHTH SOL 2ML OD SCH (08:38)
[2023-08-02] MEDS: TROPICAMIDE 1% OPHTH SOLN 15ML OD SCH (08:38)
[2023-08-02] MEDS: LIDOCAINE 1% SDV 5ML VIAL As Ordered ONE (08:57)
[2023-08-02] MEDS: CEFUROXIME 1MG/0.1ML INTRACAMERAL INJ As Ordered ONE (08:57)
[2023-08-02] MEDS: BSS IRRIG/VANCO(10MG)/TOBRA(5MG)/EPINEPH(1:1000-0.5CC)500ML BAG-ORONLY As Ordered ONE (08:58)
[2023-08-02 09:51] VITALS: BP 145/82; TEMP 96.9; O2SAT 94
== END 2023-08-02 09:58 | disposition home or self-care (01) ==
LOC: M SDC 07:37
PROVIDERS: ATTEND Ophthalmology
DX: H25.11 Age-related nuclear cataract, right eye (principal); E11.9 Type 2 diabetes mellitus without complications; G47.30 Sleep apnea, unspecified; Z88.6 Allergy status to analgesic agent; Z88.1 Allergy status to other antibiotic agents; Z88.8 Allergy status to other drugs, medicaments and biological substances; Z79.899 Other long term (current) drug therapy; Z79.85 Long-term (current) use of injectable non-insulin antidiabetic drugs
CPT/HCPCS: 66984; 92015; J0697; J2250; J3010; V2632

== ENCOUNTER 2023-08-23 09:00 | Day surgery (SDC) | payer OTHER, MEDICAID ==
[~2023-08-23] VITALS: Ht 157.5 cm; Wt 129.7 kg
[~2023-08-23 09:00] MED LIST changes: -MIDAZOLAM INJ 2MG/2ML VIAL As Ordered ONE; -PHENYLEPHRINE 10% OPHTH SOL 5ML OD PRN; +PHENYLEPHRINE 10% OPHTH SOL 5ML OS PRN; +SERT150C PO; -UNRESOLVED CLARIFICATION ENTRY XX SCH; -fentaNYL 100 MCG/2 ML INJECTION As Ordered ONE
[2023-08-23] MEDS ORDERED: MIDAZOLAM INJ 2MG/2ML VIAL As Ordered ONE (09:13)
[2023-08-23] MEDS: PHENYLEPHRINE 2.5% OPHTH SOL 2ML OS SCH (09:59)
[2023-08-23] MEDS: TROPICAMIDE 1% OPHTH SOLN 15ML OS SCH (09:59)
[2023-08-23] MEDS: ATROPINE SULFATE 1% OPHTH SOLN 2ML BTL OS SCH (09:59)
[2023-08-23] MEDS: LIDOCAINE 3.5 % 1ML OPHTH TOPICAL GEL OU ONE (10:00)
[2023-08-23] MEDS: BSS IRRIG/VANCO(10MG)/TOBRA(5MG)/EPINEPH(1:1000-0.5CC)500ML BAG-ORONLY As Ordered ONE (12:05)
[2023-08-23] MEDS: CEFUROXIME 1MG/0.1ML INTRACAMERAL INJ As Ordered ONE (12:05)
[2023-08-23] MEDS: LIDOCAINE 1% SDV 5ML VIAL As Ordered ONE (12:05)
[2023-08-23 12:50] VITALS: BP 174/88; TEMP 96.9; O2SAT 95
== END 2023-08-23 12:57 | disposition home or self-care (01) ==
LOC: M SDC 09:00
PROVIDERS: ATTEND Ophthalmology
DX: H25.12 Age-related nuclear cataract, left eye (principal); E11.9 Type 2 diabetes mellitus without complications; G47.30 Sleep apnea, unspecified; Z91.040 Latex allergy status; Z88.1 Allergy status to other antibiotic agents; Z88.6 Allergy status to analgesic agent; Z79.899 Other long term (current) drug therapy
CPT/HCPCS: 66984; J0697; J2250; V2632

== ENCOUNTER → 2024-02-29 | Outpatient (REF) | payer OTHER, MEDICAID ==
[~2024-02-29] MED LIST changes: +DOXY-440 PO; -DOXY-444 PO; -PHENYLEPHRINE 10% OPHTH SOL 5ML OS PRN
[2024-02-29 13:23] LABS: RSV AMPLIFICATION NEGATIVE (NEGATIVE)
== END ==
LOC: M LAB REF 12:20
PROVIDERS: ATTEND Nurse Practitioner Adult Health
DX: J44.9 Chronic obstructive pulmonary disease, unspecified (principal); J02.9 Acute pharyngitis, unspecified; R05.9 Cough, unspecified

== ENCOUNTER → 2024-02-29 | Outpatient (CLI) | payer OTHER, MEDICAID | LOC: M WUC 13:01 | PROVIDERS: ATTEND Nurse Practitioner Adult Health | DX: R05.9 Cough, unspecified (principal) ==

== ENCOUNTER → 2024-06-06 | Outpatient (CLI) | payer OTHER, MEDICAID | LOC: M WHC 14:13 | PROVIDERS: ATTEND Nurse Practitioner Adult Health | DX: Z12.31 Encounter for screening mammogram for malignant neoplasm of breast (principal) ==

== ENCOUNTER 2024-07-20 17:17 | Inpatient (IN) | payer OTHER, MEDICAID ==
[~2024-07-20] VITALS: Ht 172.7 cm; Wt 127.6 kg
[~2024-07-20 17:17] MED LIST changes: +GLIP-318 PO; -GLIP5TAB20 PO; -PROA1AER2 IN; +PROA1AER2 INH
[2024-07-20 18:26] LABS: BASO % 0.4 % (0.0-1.0); EOS % 0.4 % (0.0-3.0); HEMOGLOBIN 16.3 g/dl (12.0-15.5); LYMPH # 0.7 10^3/uL (1.5-5.0); LYMPH % 13.5 % (24.0-44.0); MEAN CORPUSCULAR HEMOGLOBIN 29.9 pg (27.0-33.0); MEAN CORPUSCULAR HGB CONC 31.3 g/dl (32.0-36.5); MEAN CORPUSCULAR VOLUME 95.4 fl (80.0-96.0); MONO # 0.3 10^3/uL (0.0-0.8); NEUTROPHILS # 3.9 10^3/uL (1.5-8.5); NEUTROPHILS % 79.1 % (36.0-66.0); PLATELET COUNT, AUTOMATED 168 10^3/uL (150-450); RED BLOOD COUNT 5.45 10^6/uL (4.00-5.40)
[2024-07-20 18:28] LABS: ABG BASE EXCESS 3.8 (-2.0-2.0); ABG HCO3 31.1 MMOL/L (22.0-26.0); ABG O2 SATURATION 91.2 % (95.0-99.0); ABG PARTIAL PRESSURE CO2 56.9 mmHg (35.0-45.0); ABG PARTIAL PRESSURE O2 57.5 mmHg (75.0-100.0); ABG STANDARD HCO3 27.7 MMOL/L. (22.0-26.0); ABG TOTAL CO2 32.9 MMOL/L (23.0-31.0); ABG pH (ARTERIAL) 7.356 UNITS (7.350-7.450)
[2024-07-20 18:53] LABS: CK-MB VALUE MASS < 1.0 NG/ML (<3.6)
[2024-07-20 18:55] LABS: ALBUMIN 3.4 G/DL (3.2-5.2); ALKALINE PHOSPHATASE 127 U/L (35-104); ALT/SGPT 19 U/L (7.0-40); AST/SGOT 18 U/L (<34); BILIRUBIN,DIRECT 0.2 MG/DL (<0.4); BILIRUBIN,TOTAL 0.6 MG/DL (0.3-1.2); BLOOD UREA NITROGEN 12 MG/DL (9-23); CALCIUM LEVEL 8.6 MG/DL (8.3-10.6); CARBON DIOXIDE LEVEL 31 MMOL/L (20-31); CHLORIDE LEVEL 101 MMOL/L (98-107); CREATININE FOR GFR 0.57 MG/DL (0.55-1.30); GLOMERULAR FILTRATION RATE > 60.0 (>45); GLUCOSE, FASTING 159 MG/DL (74-106); POTASSIUM SERUM 3.9 MMOL/L (3.5-5.1); SODIUM LEVEL 141 MMOL/L (136-145)
[2024-07-20 18:56] LABS: FREE T4 1.07 NG/DL (0.89-1.76)
[2024-07-20 18:57] LABS: THYROID STIMULATING HORMONE 0.985 uIU/ML (0.55-4.78)
[2024-07-20 19:01] LABS: CPK CREATINE PHOSPHOKINASE 44 U/L (34-145); MB/CK RELATIVE INDEX 2.27 (< OR =4)
[2024-07-20] MEDS ORDERED: ISOVUE-370 76% 100ML VIAL As Ordered ONE (19:17)
[2024-07-20 19:58] LABS: CK-MB VALUE MASS < 1.0 NG/ML (<3.6)
[2024-07-20 20:28] LABS: CPK CREATINE PHOSPHOKINASE 42 U/L (34-145); MB/CK RELATIVE INDEX 2.38 (< OR =4)
[2024-07-20] MEDS: IPRATROPIUM 0.5MG/ALBUTEROL 2.5MG INH SOL UD 3ML (DUONEB) NEB PRN (20:48)
[2024-07-20] MEDS ORDERED: LEVALBUTEROL 1.25MG 0.5ML CONCENTRATE NEB INH PRN (23:50)
[2024-07-20] MEDS ORDERED: MAALOX 30 ML SUSP *UDC PO PRN (23:50)
[2024-07-20] MEDS ORDERED: MOM 30ML SUSPENSION UDC PO PRN (23:50)
[2024-07-21] MEDS ORDERED: DEXTROSE 50% 50ML SYRINGE IV PRN (01:20)
[2024-07-21] MEDS ORDERED: GLUCOSE 4 GM CHEW PO PRN (01:20)
[2024-07-21] MEDS ORDERED: GLUCAGON INJ 1MG VIAL SC PRN (01:20)
[2024-07-21] MEDS: methylPREDNISolone 125MG 2ML VIAL IV SCH (01:26)
[2024-07-21 01:30] LABS: PROCALCITONIN 0.09 ng/ml
[2024-07-21] MEDS ORDERED: BENZ200C70 PO (01:36)
[2024-07-21] MEDS ORDERED: JARD1TAB3 PO (01:36)
[2024-07-21] MEDS ORDERED: SEMA1PEN2 SC (01:36)
[2024-07-21] MEDS ORDERED: SPIR12.9 INH (01:36)
[2024-07-21] MEDS ORDERED: OXYC10TA12 PO (01:36)
[2024-07-21] MEDS ORDERED: HOME MED LIST COMPLETE! XX SCH (01:40)
[2024-07-21] MEDS ORDERED: ALBUTEROL 90 MCG/ACT 8GM HFA INHALER INH PRN (04:30)
[2024-07-21] MEDS: tiZANidine 4 MG TAB PO SCH (05:43)
[2024-07-21] MEDS: oxyCODONE 5MG TAB PO PRN (05:43)
[2024-07-21 05:57] LABS: ABG BASE EXCESS 3.4 (-2.0-2.0); ABG HCO3 30.2 MMOL/L (22.0-26.0); ABG O2 SATURATION 93.5 % (95.0-99.0); ABG PARTIAL PRESSURE O2 65.1 mmHg (75.0-100.0); ABG STANDARD HCO3 27.3 MMOL/L. (22.0-26.0); ABG TOTAL CO2 31.9 MMOL/L (23.0-31.0); ABG pH (ARTERIAL) 7.366 UNITS (7.350-7.450)
[2024-07-21 07:13] LABS: HEMATOCRIT 49.6 % (36.0-47.0); HEMOGLOBIN 15.7 g/dl (12.0-15.5); MEAN CORPUSCULAR HEMOGLOBIN 29.8 pg (27.0-33.0); MEAN CORPUSCULAR HGB CONC 31.7 g/dl (32.0-36.5); MEAN CORPUSCULAR VOLUME 94.3 fl (80.0-96.0); PLATELET COUNT, AUTOMATED 194 10^3/uL (150-450); RED BLOOD COUNT 5.26 10^6/uL (4.00-5.40); WHITE BLOOD COUNT 4.6 10^3/uL (4.0-10.0)
[2024-07-21 07:35] LABS: ALBUMIN 3.1 G/DL (3.2-5.2); ALKALINE PHOSPHATASE 115 U/L (35-104); ALT/SGPT 16 U/L (7.0-40); AST/SGOT 12 U/L (<34); BILIRUBIN,TOTAL 0.5 MG/DL (0.3-1.2); BLOOD UREA NITROGEN 13 MG/DL (9-23); CALCIUM LEVEL 9.2 MG/DL (8.3-10.6); CARBON DIOXIDE LEVEL 33 MMOL/L (20-31); CHLORIDE LEVEL 99 MMOL/L (98-107); CREATININE FOR GFR 0.53 MG/DL (0.55-1.30); GLOMERULAR FILTRATION RATE > 60.0 (>45); GLUCOSE, FASTING 190 MG/DL (74-106); MAGNESIUM LEVEL 1.8 MG/DL (1.8-2.4); POTASSIUM SERUM 4.2 MMOL/L (3.5-5.1); SODIUM LEVEL 139 MMOL/L (136-145); TOTAL PROTEIN 6.8 G/DL (5.7-8.2)
[2024-07-21] MEDS: TIOTROPIUM INHALER/CAPSULE (SPIRIVA) INH SCH (07:55)
[2024-07-21] MEDS: IPRATROPIUM 0.5MG/ALBUTEROL 2.5MG INH SOL UD 3ML (DUONEB) INH SCH ×2 (07:55→12:04)
[2024-07-21] MEDS: SYMBICORT 160/4.5MCG INHALER 6GM INH SCH (07:55)
[2024-07-21] MEDS: CETIRIZINE (ZyrTEC) 10 MG TAB PO SCH (08:22)
[2024-07-21] MEDS: DOCUSATE SODIUM 100MG CAPSULE PO SCH (08:22)
[2024-07-21] MEDS: AUGMENTIN 875 MG TAB PO SCH (08:23)
[2024-07-21] MEDS: PANTOPRAZOLE 40MG VIAL IV SCH (08:23)
[2024-07-21] MEDS: SERTRALINE 100 MG TAB PO SCH (08:23)
[2024-07-21] MEDS: ENOXAPARIN 40MG/0.4ML SYRINGE (J1650 PER 10MG) SC SCH (08:24)
[2024-07-21] MEDS ORDERED: ENTER DRUG NAME HERE (PATIENT'S OWN MED) INH SCH ×2 (09:00)
[2024-07-21] MEDS ORDERED: JARDIANCE 25 MG PO SCH (09:00)
[2024-07-21] MEDS: OXcarbazepine 300 MG TAB PO SCH (09:28)
[2024-07-21] MEDS: DYAZIDE 37.5/25 CAP (TRIAM/HCTZ) PO SCH (09:28)
[2024-07-21] MEDS: INSULIN LISPRO (NovoLOG) PER UNIT SC SCH ×2 (09:29→20:22)
[2024-07-21 12:20] VITALS: BP 151/84; TEMP 97.2; O2SAT 92
[2024-07-21] MEDS: NORCO, ANEXSIA 5/325MG TABLET (HYDROcodone/ACETAMINOPHEN) PO PRN (13:30)
[2024-07-21 19:30] VITALS: BP 150/78; TEMP 98.1; O2SAT 91
[2024-07-21 20:00] VITALS: TEMP 98.3
[2024-07-21] MEDS: MONTELUKAST 10 MG TAB PO SCH (20:25)
[2024-07-21 20:26] VITALS: O2SAT 90
[2024-07-21] MEDS: LanTUS (INSULIN GLARGINE INJ) 1 UNITS/0.01 ML SC SCH (20:26)
[2024-07-21] MEDS: BENZONATATE 100MG CAPSULE PO PRN (20:26)
[2024-07-21 23:57] VITALS: O2SAT 90
[2024-07-22] VITALS (14 sets, daily range): BP systolic 159–160; BP diastolic 76–93; TEMP 96.5–98.8; O2SAT 85–93
[2024-07-22 06:17] LABS: BASO % 0.1 % (0.0-1.0); HEMATOCRIT 49.3 % (36.0-47.0); HEMOGLOBIN 15.8 g/dl (12.0-15.5); LYMPH # 0.5 10^3/uL (1.5-5.0); MEAN CORPUSCULAR HEMOGLOBIN 30.2 pg (27.0-33.0); MEAN CORPUSCULAR VOLUME 94.3 fl (80.0-96.0); MONO # 0.2 10^3/uL (0.0-0.8); NEUTROPHILS # 6.6 10^3/uL (1.5-8.5); NEUTROPHILS % 89.5 % (36.0-66.0); PLATELET COUNT, AUTOMATED 190 10^3/uL (150-450); RED BLOOD COUNT 5.23 10^6/uL (4.00-5.40); WHITE BLOOD COUNT 7.4 10^3/uL (4.0-10.0)
[2024-07-22 07:14] LABS: BLOOD UREA NITROGEN 22 MG/DL (9-23); CALCIUM LEVEL 9.3 MG/DL (8.3-10.6); CARBON DIOXIDE LEVEL 36 MMOL/L (20-31); CHLORIDE LEVEL 99 MMOL/L (98-107); CREATININE FOR GFR 0.65 MG/DL (0.55-1.30); GLOMERULAR FILTRATION RATE > 60.0 (>45); GLUCOSE, FASTING 219 MG/DL (74-106); POTASSIUM SERUM 4.7 MMOL/L (3.5-5.1); SODIUM LEVEL 138 MMOL/L (136-145)
[2024-07-23] VITALS (8 sets, daily range): BP systolic 140–155; BP diastolic 83–90; TEMP 97.1–98.8; O2SAT 79–95
[2024-07-23 05:26] LABS: BASO % 0.1 % (0.0-1.0); EOS % 0.1 % (0.0-3.0); HEMATOCRIT 49.4 % (36.0-47.0); HEMOGLOBIN 15.7 g/dl (12.0-15.5); LYMPH # 0.7 10^3/uL (1.5-5.0); LYMPH % 10.1 % (24.0-44.0); MEAN CORPUSCULAR HEMOGLOBIN 29.6 pg (27.0-33.0); MEAN CORPUSCULAR HGB CONC 31.8 g/dl (32.0-36.5); MEAN CORPUSCULAR VOLUME 93.2 fl (80.0-96.0); MONO # 0.2 10^3/uL (0.0-0.8); MONO % 2.4 % (2.0-8.0); NEUTROPHILS # 6.4 10^3/uL (1.5-8.5); NEUTROPHILS % 86.9 % (36.0-66.0); PLATELET COUNT, AUTOMATED 203 10^3/uL (150-450); WHITE BLOOD COUNT 7.4 10^3/uL (4.0-10.0)
[2024-07-23 05:50] LABS: BLOOD UREA NITROGEN 26 MG/DL (9-23); CALCIUM LEVEL 9.3 MG/DL (8.3-10.6); CARBON DIOXIDE LEVEL 33 MMOL/L (20-31); CHLORIDE LEVEL 94 MMOL/L (98-107); CREATININE FOR GFR 0.66 MG/DL (0.55-1.30); GLOMERULAR FILTRATION RATE > 60.0 (>45); GLUCOSE, FASTING 190 MG/DL (74-106); POTASSIUM SERUM 4.5 MMOL/L (3.5-5.1); SODIUM LEVEL 133 MMOL/L (136-145)
[2024-07-23] MEDS: guaiFENesin ER TABLET 600 MG TAB PO SCH (09:42)
[2024-07-23] MEDS: methylPREDNISolone 125MG 2ML VIAL IV SCH (21:20)
[2024-07-24] VITALS (7 sets, daily range): BP systolic 160; BP diastolic 62; TEMP 97.7; O2SAT 86–97
[2024-07-24 05:28] LABS: BASO % 0.2 % (0.0-1.0); HEMATOCRIT 46.7 % (36.0-47.0); HEMOGLOBIN 14.9 g/dl (12.0-15.5); LYMPH # 0.7 10^3/uL (1.5-5.0); LYMPH % 11.7 % (24.0-44.0); MEAN CORPUSCULAR HEMOGLOBIN 29.5 pg (27.0-33.0); MEAN CORPUSCULAR HGB CONC 31.9 g/dl (32.0-36.5); MEAN CORPUSCULAR VOLUME 92.5 fl (80.0-96.0); MONO # 0.3 10^3/uL (0.0-0.8); MONO % 4.2 % (2.0-8.0); NEUTROPHILS % 83.2 % (36.0-66.0); PLATELET COUNT, AUTOMATED 191 10^3/uL (150-450); RED BLOOD COUNT 5.05 10^6/uL (4.00-5.40)
[2024-07-24 05:37] LABS: BLOOD UREA NITROGEN 29 MG/DL (9-23); CALCIUM LEVEL 8.7 MG/DL (8.3-10.6); CARBON DIOXIDE LEVEL 33 MMOL/L (20-31); CHLORIDE LEVEL 95 MMOL/L (98-107); CREATININE FOR GFR 0.69 MG/DL (0.55-1.30); GLOMERULAR FILTRATION RATE > 60.0 (>45); GLUCOSE, FASTING 294 MG/DL (74-106); POTASSIUM SERUM 4.7 MMOL/L (3.5-5.1); SODIUM LEVEL 134 MMOL/L (136-145)
[2024-07-24] MEDS ORDERED: PRED10TA2 PO (11:01)
[2024-07-24] MEDS ORDERED: AMOX875T2 PO (11:01)
[2024-07-24] MEDS: predniSONE 20 MG TAB PO ONE (12:26)
== END 2024-07-24 15:31 | disposition home health service (06) | DRG 191 ==
LOC: M ED 17:17 → EDBD 17:17 → M ED INP 23:30 → M MSPAV 07-21 11:23
PROVIDERS: ADMIT Family Medicine; ATTEND Internal Medicine
DX: J44.1 Chronic obstructive pulmonary disease with (acute) exacerbation (principal); I13.0 Hypertensive heart and chronic kidney disease with heart failure and stage 1 through stage 4 chronic kidney disease, or unspecified chronic kidney disease; I50.32 Chronic diastolic (congestive) heart failure; J96.11 Chronic respiratory failure with hypoxia; J96.12 Chronic respiratory failure with hypercapnia; Z68.41 Body mass index [BMI] 40.0-44.9, adult; J45.909 Unspecified asthma, uncomplicated; G47.33 Obstructive sleep apnea (adult) (pediatric); N18.9 Chronic kidney disease, unspecified; J20.8 Acute bronchitis due to other specified organisms; F41.9 Anxiety disorder, unspecified; F32.A Depression, unspecified; E11.22 Type 2 diabetes mellitus with diabetic chronic kidney disease; Z90.49 Acquired absence of other specified parts of digestive tract; Z79.899 Other long term (current) drug therapy; Z88.1 Allergy status to other antibiotic agents; Z88.8 Allergy status to other drugs, medicaments and biological substances; Z91.198 Patient's noncompliance with other medical treatment and regimen for other reason; Z91.040 Latex allergy status; E66.01 Morbid (severe) obesity due to excess calories; Z99.81 Dependence on supplemental oxygen; B97.81 Human metapneumovirus as the cause of diseases classified elsewhere

== ENCOUNTER → 2024-08-29 | Outpatient (REF) | payer OTHER, MEDICAID ==
[~2024-08-29] MED LIST changes: +AMOX875T2 PO; +BENZ200C70 PO; +JARD1TAB3 PO; +OXYC10TA12 PO; +PRED10TA2 PO; +SEMA1PEN2 SC; +SPIR12.9 INH
[2024-08-29 14:07] LABS: BASO % 0.5 % (0.0-1.0); EOS # 0.1 10^3/uL (0.0-0.5); EOS % 0.9 % (0.0-3.0); HEMATOCRIT 46.6 % (36.0-47.0); HEMOGLOBIN 14.9 g/dl (12.0-15.5); LYMPH # 1.6 10^3/uL (1.5-5.0); MEAN CORPUSCULAR HEMOGLOBIN 30.1 pg (27.0-33.0); MEAN CORPUSCULAR VOLUME 94.1 fl (80.0-96.0); MONO # 0.8 10^3/uL (0.0-0.8); MONO % 10.7 % (2.0-8.0); NEUTROPHILS # 4.9 10^3/uL (1.5-8.5); NEUTROPHILS % 66.5 % (36.0-66.0); PLATELET COUNT, AUTOMATED 221 10^3/uL (150-450); RED BLOOD COUNT 4.95 10^6/uL (4.00-5.40); WHITE BLOOD COUNT 7.4 10^3/uL (4.0-10.0)
[2024-08-29 14:26] LABS: HEMOGLOBIN A1c 6.4 % (4.0-6.0)
[2024-08-29 14:33] LABS: CREATININE, URINE 125.5 MG/DL; MAU/CREAT RATIO 36.6 MCG/MG (0.0-30.0)
[2024-08-29 14:34] LABS: ALBUMIN 3.2 G/DL (3.2-5.2); BILIRUBIN,TOTAL 0.6 MG/DL (0.3-1.2); CHOLESTEROL RISK RATIO 3.58 (<5); CREATININE FOR GFR 0.76 MG/DL (0.55-1.30); GLOMERULAR FILTRATION RATE 88.5 (>45); HDL CHOLESTEROL 57.4 MG/DL (>40); LDL CHOLESTEROL 120.2 MG/DL (<100); NON-HDL-C 148.6 MG/DL; POTASSIUM SERUM 4.2 MMOL/L (3.5-5.1); TOTAL PROTEIN 6.6 G/DL (5.7-8.2)
== END ==
LOC: M SHH 13:25
PROVIDERS: ATTEND Internal Medicine
DX: E11.36 Type 2 diabetes mellitus with diabetic cataract (principal); I10 Essential (primary) hypertension; E78.00 Pure hypercholesterolemia, unspecified

== ENCOUNTER → 2024-12-10 | Outpatient (REF) | payer OTHER, MEDICAID | LOC: M LAB REF 14:50 | PROVIDERS: ATTEND Internal Medicine Pulmonary Disease | DX: J44.9 Chronic obstructive pulmonary disease, unspecified (principal); R05.9 Cough, unspecified ==

== ENCOUNTER → 2025-02-14 | Outpatient (REF) | payer OTHER, MEDICAID ==
[2025-02-14 15:26] LABS: BASO # 0.0 10^3/uL (0.0-0.2); BASO % 0.6 % (0.0-1.0); EOS # 0.2 10^3/uL (0.0-0.5); EOS % 3.1 % (0.0-3.0); LYMPH # 1.4 10^3/uL (1.5-5.0); LYMPH % 26.7 % (24.0-44.0); MONO # 0.5 10^3/uL (0.0-0.8); MONO % 10.0 % (2.0-8.0); NEUTROPHILS # 3.1 10^3/uL (1.5-8.5); NEUTROPHILS % 59.2 % (36.0-66.0); PLATELET COUNT, AUTOMATED 194 10^3/uL (150-450)
== END ==
LOC: M LAB REF 13:06
PROVIDERS: ATTEND Internal Medicine Pulmonary Disease
DX: J44.9 Chronic obstructive pulmonary disease, unspecified (principal); J45.40 Moderate persistent asthma, uncomplicated

== ENCOUNTER → 2025-03-04 | Outpatient (CLI) | payer OTHER, MEDICAID | LOC: M WUC 10:23 | PROVIDERS: ATTEND Nurse Practitioner Adult Health | DX: Z91.81 History of falling (principal); M17.12 Unilateral primary osteoarthritis, left knee; M47.814 Spondylosis without myelopathy or radiculopathy, thoracic region ==

== ENCOUNTER → 2025-04-07 | Outpatient (CLI) | payer OTHER, MEDICAID | LOC: M SOG 10:25 | PROVIDERS: ATTEND Physician Assistant | DX: M25.562 Pain in left knee (principal); M17.12 Unilateral primary osteoarthritis, left knee ==